=== PATIENT | female | born 1950 | race Hispanic/Latino ===

== ENCOUNTER 2019-01-15 11:54 | Outpatient (RCR) | payer MEDICARE ==
[~2019-01-15 11:54] MED LIST: ACETAMINOPHEN325 M1 PO; AMITIZA24 MCG PO; ASPIR 8181 MG PO; B-50 COMPLEX1 EACH PO; BISACODYL5 MG PO; CIPRO500 MG PO; CLINDAMYCIN HC150 MG PO; CLONIDINE HCL0.1 MG PO; COZAAR25 MG PO; DOC-Q-LACE100 MG PO; DOXYCYCLINE HY100 MG PO; FERROUS SULFAT325 MG PO; GABAPENTIN100 MG PO; GLUCOSAMINE1000 MG PO; LANTUS 3ML100 UNITS/ SC; LEVOTHYROX200 MCG/VI PO; LEVOTHYROXINE50 MCG PO; LYRICA75 MG PO; METOPROLOL SUCC25 MG PEG; NEXIUM40 MG PO; NIACIN500 M2 PO; NOVOLIN R100 UNIT/1; OMEGA-3 FISH1000 MG PO; PLAVIX75 MG PO; POTASSIUM GLUC500 GM PO; SENNA LAX8.6 MG PO; TYLENOL WITH C1 EACH PO; VITAMIN C500 MG PO; VITAMIN D1000 UNI1 PO; santyl TOP
== END 2019-01-17 ==
LOC: WCC 11:54
PROVIDERS: ATTEND Internal Medicine Infectious Disease
DX: E11.621 Type 2 diabetes mellitus with foot ulcer (principal); L97.411 Non-pressure chronic ulcer of right heel and midfoot limited to breakdown of skin; M77.32 Calcaneal spur, left foot; I10 Essential (primary) hypertension; E03.9 Hypothyroidism, unspecified; E78.00 Pure hypercholesterolemia, unspecified; M13.80 Other specified arthritis, unspecified site

== ENCOUNTER 2019-01-15 16:10 | Emergency (ER) | payer MEDICARE ==
[~2019-01-15] VITALS: Ht 170.2 cm; Wt 89.8 kg
--- OUTSIDE RECORDS SUMMARY | 2019-01-15 16:13 | XMS REPORT | Continuity of Care Document ---
Author Author IGIGI Address Unknown Phone Unavailable Care Team Providers Care Parking Manager Name Role Phone [employer] Unavailable Unavailable Problems Problem Status Onset Date Classification Date Reported Comments Source GANGRENE TO LEFT GREAT TOE Active 12/30/2016 [facility] RASH Active 11/09/2016 [facility] Discharge Diagnosis: Fall (from) incline, sequela 07/03/2015 07/06/2015 [facility] Discharge Diagnosis: Sprain of ligaments of cervical spine, initial encounter 07/02/2015 07/05/2015 [facility] Discharge Diagnosis: Sprain of ligaments of lumbar spine, initial encounter 07/02/2015 07/05/2015 [facility] Discharge Diagnosis: Fall on same level from slipping, tripping and stumbling with subsequent striking against furniture, initial encounter 07/02/2015 07/05/2015 [facility] Discharge Diagnosis: Concussion without loss of consciousness, initial encounter 07/02/2015 07/05/2015 [facility] FALL Active 07/01/2015 [facility] Discharge Diagnosis: Hyperglycemia 07/03/2014 07/06/2014 [facility] Discharge Diagnosis: Acute UTI 07/03/2014 07/06/2014 [facility] NEUROPOTHY Active 07/03/2014 [facility] Diabetes Resolved Problem 01/08/2017 [facility] Hypertension Resolved Problem 01/08/2017 [facility] Neuropathy Resolved Problem 01/08/2017 [facility] Sciatica Resolved Problem 01/08/2017 [facility] 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 [facility] 719.41/ 719.46 Active [facility] GANGRENE AND NECROSIS OF LUNG Active [facility] Medications Medication Details Route Status Patient Instructions Ordering Provider Order Date Source Acetaminophen 300 MG / Codeine Phosphate 30 MG Oral Tablet [Tylenol with Codeine #3] 1 tab, PO, Q6H, PRN Pain, # 25 tab, 0 Refill(s) Active 01/05/2017 [facility] clopidogrel 75 mg oral tablet 75 mg=1 tab, PO, Daily, # 30 tab, 0 Refill(s) Active 01/05/2017 [facility] Amoxicillin 875 MG / Clavulanate 125 MG Oral Tablet [Augmentin 875-mg] 1 tab, PO, Q12H, # 14 tab, 0 Refill(s) Active 01/05/2017 [facility] Amoxicillin 875 MG / Clavulanate 125 MG Oral Tablet [Augmentin 875-mg] 1 tab, Route: PO, Drug Form: TAB, Dosing Weight 91.818, kg, Q12H, Start date: 01/04/17 21:00:00 CDT, Duration: 30 day, Stop date: 02/03/17 9:00:00 CDTNotes: With food. (Same as: Augmentin 875) No Longer Active 01/05/2017 [facility] Calcium Chloride 0.0014 MEQ/ML / Potassium Chloride 0.004 MEQ/ML / Sodium Chloride 0.103 MEQ/ML / Sodium Lactate 0.028 MEQ/ML Injectable Solution 1,000 mL, Rate: 25 ml/hr, Infuse over: 40 hr, Route: IV, Dosing Weight 91.818 kg, Total Volume: 1,000, Start date: 01/03/17 14:33:00 CDT, Duration: 30 day, Stop date: 02/02/17 14:32:00 CDT Inactive 01/03/2017 [facility] Morphine 2 mg, Route: IVP, Q5Min, Dosing Weight 91.818, kg, PRN Pain Score 4-6, Start date: 01/03/17 12:01:00 CDT, Duration: 5 doses or times, Stop date: Limited # of times Inactive 01/03/2017 [facility] Fentanyl 25 microgram, Route: IVP, Q5Min, Dosing Weight 91.818, kg, PRN Pain Score 4-6, Priority: Routine, Start date: 01/03/17 12:01:00 CDT, Duration: 4 doses or times, Stop date: Limited # of times Inactive 01/03/2017 [facility] Labetalol 10 mg, Route: IVP, Q5Min, Dosing Weight 91.818, kg, PRN Elevated BP, Start date: 01/03/17 12:01:00 CDT, Duration: 5 doses or times, Stop date: Limited # of times Inactive 01/03/2017 [facility] Ondansetron 4 mg, Route: IVP, ONCE, Dosing Weight 91.818, kg, PRN Nausea & Vomiting, Start date: 01/03/17 12:01:00 CDT Inactive 01/03/2017 [facility] Flumazenil 0.2 mg, Route: IVP, PRN, Dosing Weight 91.818, kg, PRN Benzodiazepine Reversal, Initial dose, Start date: 01/03/17 12:01:00 CDT, Duration: 30 day, Stop date: 02/02/17 12:00:00 CDT Inactive 01/03/2017 [facility] Naloxone 0.4 mg, Route: IVP, Q2MIN, Dosing Weight 91.818, kg, PRN Narcotic Reversal, Start date: 01/03/17 12:01:00 CDT, Duration: 8 doses or times, Stop date: Limited # of times Inactive 01/03/2017 [facility] labetalol (ANES) Route: IV, Drug form: INJ, ONCE, Stop date: 01/03/17 10:48:00 CDT Inactive 01/03/2017 [facility] ondansetron (ANES) Route: IV, Drug form: INJ, ONCE, Stop date: 01/03/17 10:43:00 CDT Inactive 01/03/2017 [facility] fentaNYL (ANES) Route: IV, Drug form: INJ, ONCE, Stop date: 01/03/17 10:43:00 CDT Inactive 01/03/2017 [facility] midazolam (ANES) Route: IV, Drug form: SOLN, ONCE, Stop date: 01/03/17 10:33:00 CDT Inactive 01/03/2017 [facility] sodium chloride 0.9% 1000 ml INJ (ANES) Route: IV, Total Volume: 1,000, Start date: 01/03/17 9:55:00 CDT, Stop date: 01/03/17 10:55:00 CDT Inactive 01/03/2017 [facility] RN-Do not give Vanc till trough drawn01/02/17@17:30 RN-Do not give Vanc till trough drawn01/02/17@17:30 , Attn:N, Drug form: MISC, Route: MISC, ONCE, 01/02/17 17:00:00 CDT, Stop date: 01/02/17 17:00:00 CDT No Longer Active 01/02/2017 [facility] Plavix 75 mg, 1 tab, Route: PO, Drug form: TAB, Daily, Dosing Weight 91.818, kg, Start date: 01/02/17 9:00:00 CDT, Duration: 30 day, Stop date: 01/31/17 9:00:00 CDTNotes: (Same As: Plavix) No Longer Active 01/02/2017 [facility] Hydromorphone 0.5 mg, 0.5 mL, Route: IV, Drug form: INJ, Q3H, Dosing Weight 91.818, kg, PRN Pain Score 7-10, Start date: 01/01/17 15:30:00 CDT, Duration: 30 day, Stop date: 01/31/17 15:29:00 CDT No Longer Active 01/01/2017 [facility] sodium chloride 0.9% 1000 ml INJ 1,000 mL 1,000 mL, Rate: 100 ml/hr, Infuse over: 10 hr, Route: IV, Dosing Weight 91.818 kg, Total Volume: 1,000, Start date: 01/01/17 15:30:00 CDT, Duration: 30 day, Stop date: 01/31/17 15:29:00 CDT No Longer Active 01/01/2017 [facility] Acetaminophen 325 MG / Hydrocodone Bitartrate 5 MG Oral Tablet 1 tab, Route: PO, Drug Form: TAB, Dosing Weight 91.818, kg, Q4H, PRN Pain Score 4-6, Start date: 01/01/17 15:30:00 CDT, Duration: 30 day, Stop date: 01/31/17 15:29:00 CDTNotes: (Same as: [place] 325/5) Do not exceed 4gm/day of acetaminophen. No Longer Active 01/01/2017 [facility] Acetaminophen 325 MG / Hydrocodone Bitartrate 10 MG Oral Tablet 2 tab, Route: PO, Drug Form: TAB, Dosing Weight 91.818, kg, Q4H, PRN Pain Score 7-10, Start date: 01/01/17 15:30:00 CDT, Duration: 30 day, Stop date: 01/31/17 15:29:00 CDTNotes: Do not exceed 4gm/day of acetaminophen. (Same as: [place] 325/10) No Longer Active 01/01/2017 [facility] Calcium Chloride 0.0014 MEQ/ML / Potassium Chloride 0.004 MEQ/ML / Sodium Chloride 0.103 MEQ/ML / Sodium Lactate 0.028 MEQ/ML Injectable Solution 1,000 mL, Rate: 100 ml/hr, Infuse over: 10 hr, Route: IV, Dosing Weight 91.818 kg, Total Volume: 1,000, Start date: 01/01/17 15:30:00 CDT, Duration: 30 day, Stop date: 01/31/17 15:29:00 CDT No Longer Active 01/01/2017 [facility] heparin (ANES) Route: IV, Drug form: INJ, ONCE, Stop date: 01/01/17 15:12:00 CDT Inactive 01/01/2017 [facility] hydromorphone (ANES) Route: IV, Drug form: INJ, ONCE, Stop date: 01/01/17 14:57:00 CDT Inactive 01/01/2017 [facility] labetalol (ANES) Route: IV, Drug form: INJ, ONCE, Stop date: 01/01/17 14:51:00 CDT Inactive 01/01/2017 [facility] ondansetron (ANES) Route: IV, Drug form: INJ, ONCE, Stop date: 01/01/17 14:46:00 CDT Inactive 01/01/2017 [facility] ceFAZolin (ANES) Route: IV, Drug form: INJ, ONCE, Stop date: 01/01/17 14:46:00 CDT Inactive 01/01/2017 [facility] midazolam (ANES) Route: IV, Drug form: SOLN, ONCE, Stop date: 01/01/17 14:46:00 CDT Inactive 01/01/2017 [facility] fentaNYL (ANES) Route: IV, Drug form: INJ, ONCE, Stop date: 01/01/17 14:46:00 CDT Inactive 01/01/2017 [facility] LR 1000 mL INJ (ANES) Route: IV, Total Volume: 1,000, Start date: 01/01/17 14:09:00 CDT, Stop date: 01/01/17 15:09:00 CDT Inactive 01/01/2017 [facility] Lactated Ringers Injection IV 1000 mL 1,000 mL, Rate: 25 ml/hr, Infuse over: 40 hr, Route: IV, Dosing Weight 91.818 kg, Total Volume: 1,000, Start date: 01/01/17 13:24:00 CDT, Duration: 30 day, Stop date: 01/31/17 13:23:00 CDT Inactive 01/01/2017 [facility] vancomycin 1.25 gm, 250 mL, Route: IVPB, Drug form: INJ, [id number], Start date: 01/01/17 6:00:00 CDT, Duration: 30 day, Stop date: 01/30/17 18:00:00 CDT, ABX Indication: Bone/Joint InfectionNotes: TIME CRITICAL MEDICATION Same as: Vancocin-NS (premixed) Infusion rate 2001 mg: infuse over 2.5 hours No Longer Active 01/01/2017 [facility] sodium chloride 0.9% 1000 ml INJ 1,000 mL 1,000 mL, Rate: 100 ml/hr, Infuse over: 10 hr, Route: IV, Dosing Weight 91.818 kg, Total Volume: 1,000, Start date: 12/31/16 17:52:00 CDT, Duration: 30 day, Stop date: 01/30/17 17:51:00 CDT No Longer Active 12/31/2016 [facility] RN-Do not give vanc till trough drawn12/31/16@17:30 RN-Do not give vanc till trough drawn12/31/16@17:30 , Attn:RN, Drug form: MISC, Route: MISC, ONCE, 12/31/16 17:00:00 CDT, Stop date: 12/31/16 17:00:00 CDT Inactive 12/31/2016 [facility] pneumococcal 13-valent vaccine 0.5 mL, Route: IM, Drug Form: INJ, Daily, Start date: 12/31/16 12:00:00 CDT, Stop date: 12/31/16 14:00:00 CDTNotes: Shake well prior to use (Same as: Prevnar 13) Inactive 12/31/2016 [facility] pneumococcal 13-valent vaccine 0.5 mL, Route: IM, Drug Form: INJ, ONCE, Start date: 12/31/16 10:09:00 CDT, Stop date: 12/31/16 10:09:00 CDTNotes: Shake well prior to use (Same as: Prevnar 13) Inactive 12/31/2016 [facility] cholecalciferol 5,000 IntlUnit, 1 cap, Route: PO, Drug form: CAP, Daily, Dosing Weight 91.818, kg, Start date: 12/31/16 9:00:00 CDT, Duration: 30 day, Stop date: 01/29/17 9:00:00 CDTNotes: (Same as: Vitamin D3) No Longer Active 12/31/2016 [facility] pregabalin 150 mg, 3 cap, Route: PO, Drug form: CAP, BID, Dosing Weight 91.818, kg, Start date: 12/31/16 9:00:00 CDT, Stop date: 01/29/17 17:00:00 CDTNotes: Same as Lyrica No Longer Active 12/31/2016 [facility] Amitiza 24 microgram, Route: PO, Drug form: CAP, BID, Dosing Weight 91.818, kg, Start date: 12/31/16 9:00:00 CDT, Duration: 30 day, Stop date: 01/29/17 17:00:00 CDT No Longer Active 12/31/2016 [facility] Thyroxine 200 microgram, 1 tab, Route: PO, Drug form: TAB, Q630AM, Dosing Weight 91.818, kg, Start date: 12/31/16 6:30:00 CDT, Duration: 30 day, Stop date: 01/29/17 6:30:00 CDTNotes: Take 1 hour before or 2 hours after meal; Enteral feeds may interefere with the absorption of this medication. (Same as: Levothroid) No Longer Active 12/31/2016 [facility] Please bring pt's own med amitiza (lubiprostone) to pharm Please bring pt's own med amitiza (lubiprostone) to pharm, reminder, Drug form: MISC, Route: MISC, QSHIFT, 12/31/16 0:00:00 CDT, Duration: 30 day, Stop date: 01/29/17 16:00:00 CDT No Longer Active 12/31/2016 [facility] aspirin 81 mg tablet, enteric coated 81 mg, 1 tab, Route: PO, Drug form: ECTAB, Daily, Dosing Weight 91.818, kg, Start date: 12/30/16 19:00:00 CDT, Duration: 30 day, Stop date: 01/29/17 9:00:00 CDTNotes: Do not crush or chew. (Same As: Ecotrin) No Longer Active 12/31/2016 [facility] heparin 5,000 unit, 1 mL, Route: SUB-Q, Drug form: INJ, Q8Hnow, Dosing Weight 91.818, kg, Start date: 12/30/16 17:00:00 CDT, Duration: 30 day, Stop date: 01/29/17 9:00:00 CDTNotes: porcine heparin No Longer Active 12/30/2016 [facility] Docusate 100 mg, 1 cap, Route: PO, Drug form: CAP, BID, Dosing Weight 91.818, kg, Start date: 12/30/16 9:00:00 CDT, Duration: 30 day, Stop date: 01/28/17 17:00:00 CDTNotes: (Same as: Colace) (Do Not Crush) No Longer Active 12/30/2016 [facility] Streptococcus pneumoniae serotype 1 capsular antigen diphtheria [id number] protein conjugate vaccine / Streptococcus pneumoniae serotype 14 capsular antigen diphtheria [id number] protein conjugate vaccine / Streptococcus pneumoniae serotype 18C capsular antigen d 0.5 mL, Route: IM, Drug Form: INJ, Daily, Start date: 12/30/16 9:00:00 CDT, Duration: 1 doses or times, Stop date: 12/30/16 9:00:00 CDTNotes: Shake well prior to use (Same as: Prevnar 13) No Longer Active 12/30/2016 [facility] Zosyn 3.375 gm, Route: IVPB, [id number], Dosing Weight 91.818, kg, CrCl >=20 ml/min infuse over 4 hours, Start date: 12/30/16 6:00:00 CDT, Duration: 7 day, Stop date: 01/05/17 22:00:00 CDT, ABX Indication: Skin/Soft Tissue InfectionNotes: (Same as: Zosyn) Dosing based on Piperacillin component MEDICATION WASTE Product Size: 3375 mg Product Wasted: ___ mg No Longer Active 12/30/2016 [facility] Vancomycin 1,000 mg, Route: IVPB, [id number], Dosing Weight 91.818, kg, Start date: 12/30/16 6:00:00 CDT, Duration: 7 day, Stop date: 01/05/17 18:00:00 CDT, ABX Indication: Skin/Soft Tissue InfectionNotes: TIME CR ITICAL MEDICATION (Same As: Vancocin) Infusion rate 2001 mg: infuse over 2.5 hours MEDICATION WASTE Product Size: 1000 mg Product Wasted: ___ mg No Longer Active 12/30/2016 [facility] Insulin, Aspart, Human 3 unit, 0.03 mL, Route: SUB-Q, Drug form: SOLN, Bedtime, Dosing Weight 91.818, kg, PRN Blood Glucose Results, Start date: 12/30/16 5:43:00 CDT, Duration: 30 day, Stop date: 01/29/17 5:42:00 CDTNotes: Roll in palms of hands gently; Do not shake vigorously. (Same as: NovoLOG) "single patient use only" WASTE: F/P - Black; E - Municipal Trash Bin Stable for 28 days at room temperature. Expires in days from Date No Longer Active 12/30/2016 [facility] Dextrose 50% Syringe 25 gm, 50 mL, Route: IVP, Drug Form: INJ, Dosing Weight 91.818, kg, PRN, PRN Blood Glucose Results, Start date: 12/30/16 5:43:00 CDT, Duration: 30 day, Stop date: 01/29/17 5:42:00 CDT No Longer Active 12/30/2016 [facility] Glucagon 1 mg, Route: IM, Drug form: PDR/INJ, PRN, Dosing Weight 91.818, kg, PRN Blood Glucose Results, Start date: 12/30/16 5:43:00 CDT, Duration: 30 day, Stop date: 01/29/17 5:42:00 CDT No Longer Active 12/30/2016 [facility] Saline Flush 0.9% 10 ml, Route: IVP, Drug Form: INJ, Dosing Weight 91.818, kg, PRN, PRN Line Flush, Start date: 12/30/16 5:41:00 CDT, Duration: 30 day, Stop date: 01/29/17 5:40:00 CDTNotes: (Same as: BD Posiflush) No Longer Active 12/30/2016 [facility] Sodium Chloride 0.154 MEQ/ML Injectable Solution 1,000 mL, Rate: 75 ml/hr, Infuse over: 13.3 hr, Route: IV, Dosing Weight 91.818 kg, Total Volume: 1,000, Start date: 12/30/16 5:41:00 CDT, Duration: 30 day, Stop date: 01/29/17 5:40:00 CDT No Longer Active 12/30/2016 [facility] Morphine 2 mg, 1 mL, Route: IVP, Drug form: INJ, Q4H, Dosing Weight 91.818, kg, PRN Pain Score 7-10, Start date: 12/30/16 5:41:00 CDT, Duration: 30 day, Stop date: 01/29/17 5:40:00 CDTNotes: (Same as:MORPhine Sulfate) No Longer Active 12/30/2016 [facility] Acetaminophen 325 MG / Hydrocodone Bitartrate 5 MG Oral Tablet 2 tab, Route: PO, Drug Form: TAB, Dosing Weight 91.818, kg, Q4H, PRN Pain Score 7-10, Start date: 12/30/16 5:41:00 CDT, Duration: 30 day, Stop date: 01/29/17 5:40:00 CDTNotes: (Same as: [place] 325/5) Do not exceed 4gm/day of acetaminophen. No Longer Active 12/30/2016 [facility] Ondansetron 4 mg, 2 mL, Route: IVP, Drug form: INJ, Q6H, Dosing Weight 91.818, kg, PRN Nausea & Vomiting, Start date: 12/30/16 5:41:00 CDT, Duration: 30 day, Stop date: 01/29/17 5:40:00 CDTNotes: (Same as: Zofran) MEDICATION WASTE Product Size: 4 mg Product Wasted: ___ mg No Longer Active 12/30/2016 [facility] Morphine 2 mg, 1 mL, Route: IVP, Drug form: INJ, Q4H, Dosing Weight 91.818, kg, PRN Pain Score 7-10, Start date: 12/30/16 5:04:00 CDT, Duration: 30 day, Stop date: 01/29/17 5:03:00 CDTNotes: (Same as:MORPhine Sulfate) Inactive 12/30/2016 [facility] sodium chloride 0.9% 1000 ml INJ 1,000 mL 1,000 mL, Rate: 125 ml/hr, Infuse over: 8 hr, Route: IV, Dosing Weight 91.818 kg, Total Volume: 1,000, Start date: 12/30/16 5:03:00 CDT, Duration: 30 day, Stop date: 01/29/17 5:02:00 CDT Inactive 12/30/2016 [facility] Docusate Sodium 100 MG Oral Capsule [Colace] 100 mg=1 cap, PO, Daily, 0 Refill(s) Active 12/30/2016 [facility] Clindamycin 150 mg, PO, ABXQ8H, 0 Refill(s) No Longer Active 12/30/2016 [facility] Esomeprazole 40 MG Enteric Coated Capsule [Nexium] 40 mg=1 cap, PO, Daily, 0 Refill(s) Inactive 12/30/2016 [facility] Glucosamine 500 mg, PO, Daily, 0 Refill(s) Active 12/30/2016 [facility] cholecalciferol 5,000 IntlUnit, PO, Daily, 0 Refill(s) Active 12/30/2016 [facility] Niacin 500 mg, PO, Daily, 0 Refill(s) Active 12/30/2016 [facility] Thyroxine 200 microgram, PO, Daily, 0 Refill(s) Active 12/30/2016 [facility] potassium gluconate 595 mg oral tablet 595 mg po oral daily, 0 Refill(s) Active 12/30/2016 [facility] lubiprostone 0.024 MG Oral Capsule [Amitiza] 24 microgram=1 cap, PO, BID, 0 Refill(s) Active 12/30/2016 [facility] Insulin Glargine 100 UNT/ML Injectable Solution 0.3 unit/kg, SUB-Q, BID, 50 units sq bid, 0 Refill(s) Active 12/30/2016 [facility] aspirin 81 mg tablet, enteric coated 81 mg=1 tab, PO, Daily, # 90 tab, 3 Refill(s) Active 12/30/2016 [facility] pregabalin 75 mg oral capsule 75 mg=1 cap, PO, BID, 0 Refill(s) Active 12/30/2016 [facility] losartan 50 mg oral tablet 50 mg=1 tab, PO, Daily, 0 Refill(s) Active 12/30/2016 [facility] Vitamin B Complex oral tablet 1 tab, PO, Daily, 0 Refill(s) Active 12/30/2016 [facility] tramadol hydrochloride 50 MG Oral Tablet [Ultram] 50 mg=1 tab, PO, Q4H, PRN pain, X 5 day, # 30 tab, 0 Refill(s) Active 07/03/2015 [facility] Ondansetron 4 MG Disintegrating Tablet [Zofran] 4 mg=1 tab, PO, BID, PRN Nausea and Vomiting, Dissolve tab under tongue, X 3 day, # 10 tab, 0 Refill(s) Active 07/03/2015 [facility] Zofran 4 mg, Route: IVP, Drug form: INJ, ONCE, Dosing Weight 98.182, kg, Priority: STAT, Start date: 07/03/15 8:51:00, Stop date: 07/03/15 8:51:00 Inactive 07/03/2015 [facility] tramadol hydrochloride 50 MG Oral Tablet [Ultram] 1 tab, Route: PO, Drug form: TAB, ONCE, Dosing Weight 98.182, kg, Priority: STAT, Start date: 07/03/15 8:50:00, Stop date: 07/03/15 8:50:00 Inactive 07/03/2015 [facility] Morphine 4 mg, 2 mL, Route: IVP, Drug form: INJ, ONCE, Dosing Weight 98.182, kg, Priority: STAT, Start date: 07/03/15 8:11:00, Stop date: 07/03/15 8:11:00Notes: (Same as:MORPhine Sulfate) Inactive 07/03/2015 [facility] Acetaminophen 325 MG Oral Tablet [Tylenol] 650 mg=2 tab, PO, Q4H, PRN Pain, X 3 day, # 36 tab, 0 Refill(s) Active 07/02/2015 [facility] Acetaminophen 650 mg, Route: PO, Drug form: TAB, ONCE, Dosing Weight 100, kg, Priority: STAT, Start date: 07/02/15 6:06:00, Stop date: 07/02/15 6:06:00 Inactive 07/02/2015 [facility] Zofran ODT 4 mg, Route: PO, Drug form: TABDIS, ONCE, Dosing Weight 100, kg, Priority: STAT, Start date: 07/02/15 6:06:00, Stop date: 07/02/15 6:06:00 Inactive 07/02/2015 [facility] NPH Insulin, Human 70 UNT/ML / Regular Insulin, Human 30 UNT/ML Injectable Suspension [Novolin 70/30] See Special Instructions, SUB-Q, BID-Before Meals, Take as previously prescribed, # 10 vial, 0 Refill(s)Special Instructions: Take as previously prescribed Active 07/03/2014 [facility] Nitrofurantoin 100 MG Oral Capsule [Macrobid] 100 mg=1 cap, PO, BID, # 14 cap, 0 Refill(s) Active 07/03/2014 [facility] Allergies, Adverse Reactions, Alerts Substance Category Reaction Severity Reaction type Status Date Reported Comments Source Actos Assertion Drug allergy Active [facility] Immunizations Immunization Date Given Site Status Last Updated Comments Source pneumococcal 13-valent vaccine 12/31/2016 Right deltoid completed [facility] Results Order Name Results Value Reference Range Date Interpretation Comments Source HEMATOLOGY Hgb 8.1 12.0 - 16.0 01/05/2017 [facility] HEMATOLOGY RBC 2.62 4.20 - 5.40 01/05/2017 [facility] HEMATOLOGY WBC 8.9 3.7 - 10.4 01/05/2017 [facility] HEMATOLOGY RDW 13.1 11.5 - 14.5 01/05/2017 [facility] HEMATOLOGY MCHC 34.1 32.0 - 36.0 01/05/2017 [facility] HEMATOLOGY Hct 23.8 36.0 - 48.0 01/05/2017 [facility] HEMATOLOGY MCH 30.9 27.0 - 31.0 01/05/2017 [facility] HEMATOLOGY MCV 90.6 80.0 - 98.0 01/05/2017 [facility] HEMATOLOGY Platelet 290 133 - 450 01/05/2017 [facility] MPV 7.6 7.4 - 10.4 01/05/2017 [facility] CHEM PANEL eGFR 92 01/04/2017 Result Comment: The eGFR is calculated using the CKD-EPI formula. In most young, healthy individuals the eGFR will be >90 mL/min/1.73m2. The eGFR declines with age. An eGFR of 60-89 may be normal in some populations, particularly the elderly, for whom the CKD-EPI formula has not been extensively validated. Use of the eGFR is not recommended in the following populations:

Individuals with unstable creatinine concentrations, including patients and those with serious co-morbid conditions.

Patients with extremes in muscle mass or diet.

The data above are obtained from the National Kidney Disease Education Program (NKDEP) which additionally recommends that when the eGFR is used in patients with extremes of body mass index for purposes of drug dosing, the eGFR should be multiplied by the estimated BMI. [facility] CHEM PANEL Chloride Lvl 102 95 - 109 01/04/2017 [facility] CHEM PANEL CO2 27 24 - 32 01/04/2017 [facility] CHEM PANEL Calcium Lvl 8.0 8.5 - 10.5 01/04/2017 [facility] CHEM PANEL Sodium Lvl 135 135 - 145 01/04/2017 [facility] CHEM PANEL Potassium Lvl 3.8 3.5 - 5.1 01/04/2017 [facility] CHEM PANEL Glucose Lvl 215 70 - 99 01/04/2017 [facility] CHEM PANEL BUN 7 7 - 22 01/04/2017 [facility] CHEM PANEL Creatinine Lvl 0.67 0.50 - 1.40 01/04/2017 [facility] CHEM PANEL AGAP 9.8 10.0 - 20.0 01/04/2017 [facility] MPV 7.0 7.4 - 10.4 01/04/2017 [facility] Platelet 256 133 - 450 01/04/2017 [facility] HEMATOLOGY RDW 13.3 11.5 - 14.5 01/04/2017 [facility] MCHC 33.8 32.0 - 36.0 01/04/2017 [facility] MCH 30.2 27.0 - 31.0 01/04/2017 [facility] HEMATOLOGY MCV 89.5 80.0 - 98.0 01/04/2017 [facility] Hct 22.2 36.0 - 48.0 01/04/2017 [facility] WBC 9.2 3.7 - 10.4 01/04/2017 [facility] Hgb 7.5 12.0 - 16.0 01/04/2017 [facility] HEMATOLOGY RBC 2.48 4.20 - 5.40 01/04/2017 [facility] TOXICOLOGY Vanco Tr TND 0 01/02/2017 [facility] TOXICOLOGY Vanco Tr 19.3 01/02/2017 [facility] CHEM PANEL eGFR 92 01/02/2017 Result Comment: The eGFR is calculated using the CKD-EPI formula. In most young, healthy individuals the eGFR will be >90 mL/min/1.73m2. The eGFR declines with age. An eGFR of 60-89 may be normal in some populations, particularly the elderly, for whom the CKD-EPI formula has not been extensively validated. Use of the eGFR is not recommended in the following populations:

Individuals with unstable creatinine concentrations, including patients and those with serious co-morbid conditions.

Patients with extremes in muscle mass or diet.

The data above are obtained from the National Kidney Disease Education Program (NKDEP) which additionally recommends that when the eGFR is used in patients with extremes of body mass index for purposes of drug dosing, the eGFR should be multiplied by the estimated BMI. [facility] CHEM PANEL BUN 7 7 - 22 01/02/2017 [facility] CHEM PANEL Creatinine Lvl 0.67 0.50 - 1.40 01/02/2017 [facility] CHEM PANEL Sodium Lvl 134 135 - 145 01/02/2017 [facility] CHEM PANEL Glucose Lvl 134 70 - 99 01/02/2017 [facility] CHEM PANEL AGAP 11.9 10.0 - 20.0 01/02/2017 [facility] CHEM PANEL CO2 26 24 - 32 01/02/2017 [facility] CHEM PANEL Calcium Lvl 8.0 8.5 - 10.5 01/02/2017 [facility] CHEM PANEL Potassium Lvl 3.9 3.5 - 5.1 01/02/2017 [facility] CHEM PANEL Chloride Lvl 100 95 - 109 01/02/2017 [facility] HEMATOLOGY Eosinophils # 0.1 0.0 - 0.5 01/02/2017 [facility] HEMATOLOGY Basophils # 0.2 0.0 - 0.2 01/02/2017 [facility] HEMATOLOGY Basophils 1.3 0.0 - 1.0 01/02/2017 [facility] HEMATOLOGY Lymphocytes # 1.9 1.0 - 5.5 01/02/2017 [facility] Lymphocytes 16.3 20.0 - 40.0 01/02/2017 [facility] Segs-Bands # 8.8 1.5 - 8.1 01/02/2017 [facility] Monocytes # 0.9 0.0 - 0.8 01/02/2017 [facility] HEMATOLOGY Segs 74.3 45.0 - 75.0 01/02/2017 [facility] HEMATOLOGY Eosinophils 0.6 0.0 - 4.0 01/02/2017 [facility] Monocytes 7.5 2.0 - 12.0 01/02/2017 [facility] RDW 12.9 11.5 - 14.5 01/02/2017 [facility] MCH 30.4 27.0 - 31.0 01/02/2017 [facility] MCHC 33.7 32.0 - 36.0 01/02/2017 [facility] MCV 90.3 80.0 - 98.0 01/02/2017 [facility] Hgb 8.3 12.0 - 16.0 01/02/2017 [facility] Hct 24.6 36.0 - 48.0 01/02/2017 [facility] RBC 2.73 4.20 - 5.40 01/02/2017 [facility] WBC 11.9 3.7 - 10.4 01/02/2017 [facility] MPV 7.4 7.4 - 10.4 01/02/2017 [facility] Platelet 266 133 - 450 01/02/2017 [facility] ELECTROLYTES AGAP 11.0 10.0 - 20.0 01/01/2017 [facility] ELECTROLYTES eGFR 93 01/01/2017 Result Comment: The eGFR is calculated using the CKD-EPI formula. In most young, healthy individuals the eGFR will be >90 mL/min/1.73m2. The eGFR declines with age. An eGFR of 60-89 may be normal in some populations, particularly the elderly, for whom the CKD-EPI formula has not been extensively validated. Use of the eGFR is not recommended in the following populations:

Individuals with unstable creatinine concentrations, including patients and those with serious co-morbid conditions.

Patients with extremes in muscle mass or diet.

The data above are obtained from the National Kidney Disease Education Program (NKDEP) which additionally recommends that when the eGFR is used in patients with extremes of body mass index for purposes of drug dosing, the eGFR should be multiplied by the estimated BMI. [facility] ELECTROLYTES Chloride Lvl 101 95 - 109 01/01/2017 [facility] ELECTROLYTES Sodium Lvl 135 135 - 145 01/01/2017 [facility] ELECTROLYTES Potassium Lvl 4.0 3.5 - 5.1 01/01/2017 [facility] ELECTROLYTES Calcium Lvl 8.8 8.5 - 10.5 01/01/2017 [facility] ELECTROLYTES CO2 27 24 - 32 01/01/2017 [facility] ELECTROLYTES Creatinine Lvl 0.64 0.50 - 1.40 01/01/2017 [facility] ELECTROLYTES BUN 6 7 - 22 01/01/2017 [facility] ELECTROLYTES Glucose Lvl 82 70 - 99 01/01/2017 [facility] BLOOD BANK RESULTS Antibody Scrn Negative (12/31/16 6:51 PM) 12/31/2016 [facility] BLOOD BANK RESULTS ABO/Rh O POS 12/31/2016 [facility] HEMATOLOGY PTT 45.9 22.9 - 35.8 12/31/2016 [facility] HEMATOLOGY INR 1.14 0.85 - 1.17 12/31/2016 [facility] HEMATOLOGY PT 14.8 12.0 - 14.7 12/31/2016 [facility] HEMATOLOGY Lymphocytes 18.8 20.0 - 40.0 12/31/2016 [facility] HEMATOLOGY Eosinophils 1.5 0.0 - 4.0 12/31/2016 [facility] HEMATOLOGY Segs 71.0 45.0 - 75.0 12/31/2016 [facility] HEMATOLOGY Monocytes 8.0 2.0 - 12.0 12/31/2016 [facility] HEMATOLOGY Basophils 0.7 0.0 - 1.0 12/31/2016 [facility] HEMATOLOGY Segs-Bands # 8.0 1.5 - 8.1 12/31/2016 [facility] HEMATOLOGY Monocytes # 0.9 0.0 - 0.8 12/31/2016 [facility] HEMATOLOGY Lymphocytes # 2.1 1.0 - 5.5 12/31/2016 [facility] HEMATOLOGY Eosinophils # 0.2 0.0 - 0.5 12/31/2016 [facility] HEMATOLOGY Basophils # 0.1 0.0 - 0.2 12/31/2016 [facility] TOXICOLOGY Vanco Tr 12.5 12/31/2016 [facility] TOXICOLOGY Vanco Tr TND 0 12/31/2016 [facility] CHEM PANEL Magnesium Lvl 1.9 1.8 - 2.4 12/31/2016 [facility] CHEM PANEL B/C Ratio 17 6 - 25 12/31/2016 [facility] CHEM PANEL A/G Ratio 0.4 0.7 - 1.6 12/31/2016 [facility] CHEM PANEL Globulin 4.6 2.7 - 4.2 12/31/2016 [facility] CHEM PANEL ALT 23 0 - 65 12/31/2016 [facility] CHEM PANEL Total Protein 6.6 6.4 - 8.4 12/31/2016 [facility] CHEM PANEL Albumin Lvl 2.0 3.5 - 5.0 12/31/2016 [facility] CHEM PANEL Alk Phos 290 39 - 136 12/31/2016 [facility] CHEM PANEL AST 23 0 - 37 12/31/2016 [facility] CHEM PANEL Bili Total 0.6 0.2 - 1.3 12/31/2016 [facility] CHEM PANEL Phosphorus 3.4 2.5 - 4.5 12/31/2016 [facility] HEMATOLOGY Monocytes 8.5 2.0 - 12.0 12/31/2016 [facility] HEMATOLOGY Lymphocytes 18.0 20.0 - 40.0 12/31/2016 [facility] HEMATOLOGY Segs 70.6 45.0 - 75.0 12/31/2016 [facility] HEMATOLOGY Monocytes # 0.8 0.0 - 0.8 12/31/2016 [facility] HEMATOLOGY Segs-Bands # 6.9 1.5 - 8.1 12/31/2016 [facility] HEMATOLOGY Basophils 0.9 0.0 - 1.0 12/31/2016 [facility] HEMATOLOGY Lymphocytes # 1.7 1.0 - 5.5 12/31/2016 [facility] HEMATOLOGY Eosinophils 2.0 0.0 - 4.0 12/31/2016 [facility] HEMATOLOGY Basophils # 0.1 0.0 - 0.2 12/31/2016 [facility] HEMATOLOGY Eosinophils # 0.2 0.0 - 0.5 12/31/2016 [facility] HEMATOLOGY INR 1.22 0.85 - 1.17 12/31/2016 [facility] HEMATOLOGY PTT 44.6 22.9 - 35.8 12/31/2016 [facility] HEMATOLOGY PT 15.7 12.0 - 14.7 12/31/2016 [facility] SPECIAL CHEMISTRY Hgb A1C 9.1 <=5.6 % 12/31/2016 [facility] CHEM PANEL Lactic Acid Lvl 1.0 0.5 - 2.2 12/30/2016 [facility] CHEM PANEL eGFR 63 07/03/2015 Result Comment: The eGFR is calculated using the CKD-EPI formula. In most young, healthy individuals the eGFR will be >90 mL/min/1.73m2. The eGFR declines with age. An eGFR of 60-89 may be normal in some populations, particularly the elderly, for whom the CKD-EPI formula has not been extensively validated. Use of the eGFR is not recommended in the following populations:

Individuals with unstable creatinine concentrations, including patients and those with serious co-morbid conditions.

Patients with extremes in muscle mass or diet.

The data above are obtained from the National Kidney Disease Education Program (NKDEP) which additionally recommends that when the eGFR is used in patients with extremes of body mass index for purposes of drug dosing, the eGFR should be multiplied by the estimated BMI. [facility] CHEM PANEL Alk Phos 102 39 - 136 07/03/2015 [facility] CHEM PANEL Bili Total 0.7 0.2 - 1.3 07/03/2015 [facility] CHEM PANEL AST 18 0 - 37 07/03/2015 [facility] CHEM PANEL Albumin Lvl 3.4 3.5 - 5.0 07/03/2015 [facility] CHEM PANEL ALT 34 0 - 65 07/03/2015 [facility] CHEM PANEL Sodium Lvl 126 135 - 145 07/03/2015 [facility] CHEM PANEL Creatinine Lvl 0.95 0.50 - 1.40 07/03/2015 [facility] CHEM PANEL BUN 13 7 - 22 07/03/2015 [facility] CHEM PANEL Glucose Lvl 315 70 - 99 07/03/2015 [facility] CHEM PANEL Total Protein 7.4 6.4 - 8.4 07/03/2015 [facility] CHEM PANEL Chloride Lvl 92 95 - 109 07/03/2015 [facility] CHEM PANEL CO2 26 24 - 32 07/03/2015 [facility] CHEM PANEL Calcium Lvl 8.7 8.5 - 10.5 07/03/2015 [facility] CHEM PANEL Potassium Lvl 4.1 3.5 - 5.1 07/03/2015 [facility] CHEM PANEL B/C Ratio 14 6 - 25 07/03/2015 [facility] CHEM PANEL Globulin 4.0 2.0 - 4.0 07/03/2015 [facility] CHEM PANEL A/G Ratio 0.8 0.7 - 1.6 07/03/2015 [facility] CHEM PANEL AGAP 12.1 10.0 - 20.0 07/03/2015 [facility] HEMATOLOGY MPV 9.3 7.4 - 10.4 07/03/2015 [facility] HEMATOLOGY Platelet 191 133 - 450 07/03/2015 [facility] HEMATOLOGY RDW 12.6 11.5 - 14.5 07/03/2015 [facility] HEMATOLOGY MCHC 33.9 32.0 - 36.0 07/03/2015 [facility] MCH 32.1 27.0 - 31.0 07/03/2015 [facility] HEMATOLOGY RBC 4.20 4.20 - 5.40 07/03/2015 [facility] HEMATOLOGY MCV 94.5 80.0 - 98.0 07/03/2015 [facility] HEMATOLOGY Hct 39.6 36.0 - 48.0 07/03/2015 [facility] HEMATOLOGY Hgb 13.5 12.0 - 16.0 07/03/2015 [facility] HEMATOLOGY WBC 8.5 3.7 - 10.4 07/03/2015 [facility] HEMATOLOGY Monocytes 4.9 2.0 - 12.0 07/03/2015 [facility] HEMATOLOGY Segs 72.4 45.0 - 75.0 07/03/2015 [facility] HEMATOLOGY Lymphocytes 20.2 20.0 - 40.0 07/03/2015 [facility] HEMATOLOGY Monocytes # 0.4 0.0 - 0.8 07/03/2015 [facility] HEMATOLOGY Basophils # 0.1 0.0 - 0.2 07/03/2015 [facility] HEMATOLOGY Eosinophils # 0.1 0.0 - 0.5 07/03/2015 [facility] HEMATOLOGY Lymphocytes # 1.7 1.0 - 5.5 07/03/2015 [facility] HEMATOLOGY Segs-Bands # 6.2 1.5 - 8.1 07/03/2015 [facility] HEMATOLOGY Basophils 1.1 0.0 - 1.0 07/03/2015 [facility] HEMATOLOGY Eosinophils 1.4 0.0 - 4.0 07/03/2015 [facility] URINE AND STOOL UA Color Ltyellow 07/03/2015 [facility] URINE AND STOOL UA Urobilinogen <=1.0 mg/dL 0.1 - 1.0 07/03/2015 [facility] URINE AND STOOL UA Turbidity Clear (07/03/15 8:31 AM) Clear 07/03/2015 [facility] URINE AND STOOL UA Glucose 500 mg/dL Negative mg/dL 07/03/2015 [facility] URINE AND STOOL UA Ketones Negative mg/dL Negative mg/dL 07/03/2015 [facility] URINE AND STOOL UA Spec Grav 1.013 <=1.030 07/03/2015 [facility] URINE AND STOOL UA pH 6.0 5.0 - 8.0 07/03/2015 [facility] URINE AND STOOL UA Protein Negative mg/dL Negative mg/dL 07/03/2015 [facility] URINE AND STOOL UA Leuk Est Negative (07/03/15 8:31 AM) Negative 07/03/2015 [facility] URINE AND STOOL UA Bili Negative *NA* (07/03/15 8:31 AM) Negative 07/03/2015 [facility] URINE AND STOOL UA Blood Negative (07/03/15 8:31 AM) Negative 07/03/2015 [facility] URINE AND STOOL UA Nitrite Negative (07/03/15 8:31 AM) Negative 07/03/2015 [facility] URINE AND STOOL UA Sq Epi Occasional /LPF Few /LPF 07/03/2015 [facility] URINE AND STOOL UA WBC 1 0 - 5 07/03/2015 [facility] URINE AND STOOL UA RBC 1 0 - 2 07/03/2015 [facility] URINE AND STOOL UA RBC 4 0 - 2 07/03/2014 [facility] URINE AND STOOL UA Urobilinogen 2.0 0.1 - 1.0 07/03/2014 [facility] URINE AND STOOL UA Nitrite Negative (07/03/14 2:59 PM) Negative 07/03/2014 [facility] URINE AND STOOL UA WBC 7 0 - 5 07/03/2014 [facility] URINE AND STOOL UA Sq Epi Moderate /LPF Few /LPF 07/03/2014 [facility] URINE AND STOOL UA Leuk Est Moderate *ABN* (07/03/14 2:59 PM) Negative 07/03/2014 [facility] URINE AND STOOL UA Spec Grav 1.020 <=1.030 07/03/2014 [facility] URINE AND STOOL UA Color Yellow *NA* (07/03/14 2:59 PM) Yellow 07/03/2014 [facility] URINE AND STOOL UA pH 6.0 5.0 - 8.0 07/03/2014 [facility] URINE AND STOOL UA Turbidity Slight *ABN* (07/03/14 2:59 PM) Clear 07/03/2014 [facility] URINE AND STOOL UA Glucose 500 mg/dL Negative mg/dL 07/03/2014 [facility] URINE AND STOOL UA Protein Negative mg/dL Negative mg/dL 07/03/2014 [facility] URINE AND STOOL UA Blood Negative (07/03/14 2:59 PM) Negative 07/03/2014 [facility] URINE AND STOOL UA Ketones Negative mg/dL Negative mg/dL 07/03/2014 [facility] URINE AND STOOL UA Bili Negative *NA* (07/03/14 2:59 PM) Negative 07/03/2014 [facility] CARDIAC ENZYMES CK MB Index 2.6 0.0 - 2.5 07/03/2014 [facility] CARDIAC ENZYMES Troponin-I 0.10 0.00 - 0.40 07/03/2014 [facility] CARDIAC ENZYMES CK MB 2.3 0.5 - 3.6 07/03/2014 [facility] CARDIAC ENZYMES Total CK 88 12 - 191 07/03/2014 [facility] CHEM PANEL Magnesium Lvl 1.8 1.8 - 2.4 07/03/2014 [facility] ELECTROLYTES Sodium Lvl 133 135 - 145 07/03/2014 [facility] ELECTROLYTES Potassium Lvl 3.9 3.5 - 5.1 07/03/2014 [facility] ELECTROLYTES Chloride Lvl 97 95 - 109 07/03/2014 [facility] ELECTROLYTES Alk Phos 147 39 - 136 07/03/2014 [facility] ELECTROLYTES Bili Total 0.5 0.2 - 1.3 07/03/2014 [facility] ELECTROLYTES ALT 97 0 - 65 07/03/2014 [facility] ELECTROLYTES AST 80 0 - 37 07/03/2014 [facility] ELECTROLYTES Total Protein 7.8 6.4 - 8.4 07/03/2014 [facility] ELECTROLYTES Albumin Lvl 3.6 3.5 - 5.0 07/03/2014 [facility] ELECTROLYTES CO2 27 24 - 32 07/03/2014 [facility] ELECTROLYTES Calcium Lvl 9.0 8.5 - 10.5 07/03/2014 [facility] ELECTROLYTES Creatinine Lvl 1.0 0.5 - 1.4 07/03/2014 [facility] ELECTROLYTES A/G Ratio 0.9 0.7 - 1.6 07/03/2014 [facility] ELECTROLYTES Globulin 4.2 2.0 - 4.0 07/03/2014 [facility] ELECTROLYTES B/C Ratio 12 6 - 25 07/03/2014 [facility] ELECTROLYTES AGAP 12.9 10.0 - 20.0 07/03/2014 [facility] ELECTROLYTES eGFR 60 07/03/2014 <sup>1</sup>Result Comment: The eGFR is calculated using the CKD-EPI formula. In most young, healthy individuals the eGFR will be >90 mL/min/1.73m2. The eGFR declines with age. An eGFR of 60-89 may be normal in some populations, particularly the elderly, for whom the CKD-EPI formula has not been extensively validated. Use of the eGFR is not recommended in the following populations:& lt;br/>
Individuals with unstable creatinine concentrations, including patients and those with serious co-morbid conditions.

Patients with extremes in muscle mass or diet.

The data above are obtained from the National Kidney Disease Education Program (NKDEP) which additionally recommends that when the eGFR is used in patients with extremes of body mass index for purposes of drug dosing, the eGFR should be multiplied by the estimated BMI. [facility] ELECTROLYTES Glucose Lvl 304 70 - 99 07/03/2014 <sup>2</sup>Interpretive Data: Adult reference range values reflect the clinical guidelines
of the [employer]. [facility] ELECTROLYTES BUN 12 7 - 22 07/03/2014 [facility] PTT 28.5 22.9 - 35.8 07/03/2014 <sup>4</sup>Interpretive Data: Heparin Therapeutic Range: 57 - 92 Seconds [facility] PT 12.7 12.0 - 14.7 07/03/2014 [facility] INR 0.95 0.85 - 1.17 07/03/2014 <sup>3</sup>Interpretive Data: RECOMMENDED RANGES FOR PROTIME INR:
2.0-3.0 for most medical and surgical thromboembolic states.
2.5-3.5 for artificial heart valves and recurrent embolism.

INR SHOULD BE USED ONLY FOR PATIENTS ON STABLE ANTICOAGULANT THERAPY. [facility] HEMATOLOGY Monocytes # 0.7 0.0 - 0.8 07/03/2014 [facility] HEMATOLOGY Eosinophils # 0.2 0.0 - 0.5 07/03/2014 [facility] HEMATOLOGY Basophils # 0.1 0.0 - 0.2 07/03/2014 [facility] Lymphocytes # 3.1 1.0 - 5.5 07/03/2014 [facility] HEMATOLOGY Eosinophils 2.1 0.0 - 4.0 07/03/2014 [facility] Basophils 1.1 0.0 - 1.0 07/03/2014 [facility] Monocytes 6.6 2.0 - 12.0 07/03/2014 [facility] Segs-Bands # 5.8 1.5 - 8.1 07/03/2014 [facility] Segs 59.1 45.0 - 75.0 07/03/2014 [facility] Lymphocytes 31.1 20.0 - 40.0 07/03/2014 [facility] Hgb 14.3 12.0 - 16.0 07/03/2014 [facility] RBC 4.35 4.20 - 5.40 07/03/2014 [facility] WBC 9.8 3.7 - 10.4 07/03/2014 [facility] Hct 40.8 36.0 - 48.0 07/03/2014 [facility] MCH 32.9 27.0 - 31.0 07/03/2014 [facility] Platelet 221 133 - 450 07/03/2014 [facility] MCHC 35.1 32.0 - 36.0 07/03/2014 [facility] RDW 13.2 11.5 - 14.5 07/03/2014 [facility] MCV 93.8 80.0 - 98.0 07/03/2014 [facility] MPV 9.5 7.4 - 10.4 07/03/2014 [facility] Pathology Reports No Data Provided for This Section Diagnostic Reports Report Value Date Source Foot series DX Clinical Indication: - 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 There has been amputation through the distal 1st metatarsal. Multiple foci of air in the adjacent soft tissues. Lucencies overlying the distal aspect of the remaining 1st metatarsal on the frontal projection are most likely in the underlying soft tissues. No fracture or dislocation. If there is further concern, recommend follow-up radiographs or bone scan for complete assessment. IMPRESSION: There has been amputation through the distal 1st metatarsal. Multiple foci of air in the adjacent soft tissues are likely postsurgical, although gas recent soft tissue infection cannot be excluded radiographically. A small ossific fragment in the plantar soft tissues underlying the distal aspect of the remaining 1st metatarsal.. No definite radiographic evidence of osteomyelitis. SL: [id number] 01/03/2017 [facility] Chest 1view DX Patient Name: JE TIPTON : 1950; Age: 66 years y/o Female MR: [id number] Study: Chest 1view DX 12/31/2016 5:52 PM CDT Ordering Physician: Ward Hines MD Clinical Indication: - abnormal chest sounds; Comparison: 07/02/2015 Chest one view Lungs are clear. Stable mild cardiomegaly. No overt congestive heart failure or pulmonary edema. No pleural effusion or pneumothorax. Degenerative changes are present within the shoulders and spine. IMPRESSION: Stable mild cardiomegaly, without additional acute findings. SL: [id number] 12/31/2016 [facility] Ext Lower Arterial bilat w pressure US Please refer to the heart lab report, located under vascular in [facility]. 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 - Osteomyelitis. Comparison: None TECHNIQUE: Multiplanar, multisequence noncontrast imaging of the left forefoot followed by postcontrast fat-saturated T1 images after IV contrast. IV contrast: 15 mL MultiHance. FINDINGS: Bones: There is focal increased STIR signal with associated enhancement and decreased T1 signal within the dorsal aspect of the base of the 1st proximal phalanx concerning for early osteomyelitis (image 22 of the sagittal series). There is increased STIR signal within the majority of the 2nd proximal phalanx without significant associated decreased T1 signal or enhancement, which is indeterminant. Remaining bone marrow signal appears within normal limits. No other areas of abnormal marrow edema or enhancement to suggest osteomyelitis. No acute fracture. Soft tissues: Mild subcutaneous edema in the plantar aspect of the forefoot. No focal fluid collection. Muscles: Mild diffuse fatty atrophy of the intrinsic muscles of the forefoot. No significant muscular edema or abnormal enhancement. Tendons: No focal tendon signal abnormality, or evidence for tenosynovitis. IMPRESSION: 1. Findings concerning for focal early osteomyelitis involving the dorsal aspect of the base of the 1st proximal phalanx. 2. Increased STIR signal within the 2nd proximal phalanx without significant associated enhancement or decreased T1 signal is indeterminate for osteomyelitis. 3. Mild subcutaneous edema in the plantar aspect of the forefoot. 4. Mild diffuse fatty atrophy of the intrinsic muscles of the forefoot may relate to disuse or denervation changes. SL: [id number] 12/30/2016 [facility] Chest/Abdomen/Pelvis w IV contrast CT EXAM: CT CHEST WITH CONTRAST. EXAM: CT ABDOMEN PELVIS WITH CONTRAST. DATE: Jul 03, 2015 09:35:09 AM INDICATION: Fall. Large posterior right flank hematoma. COMPARISON: None. TECHNIQUE: Multiple CT images of the chest, abdomen and pelvis were obtained with reconstructions in the coronal and sagittal planes. Delayed axial images are also provided. FINDINGS: Limited views of the neck soft tissues are normal. The heart and great vessels and mediastinum are within normal limits. There is no mediastinal hematoma. . Small hypodense pericardial effusion is identified. Thoracic esophagus is normal in appearance. The trachea and main bronchi are patent. The lungs are clear bilaterally. No pleural effusion or pneumothorax. 4 mm hypodense focus is seen in the dependent portion of the gallbladder (series 3, image 56). The liver, spleen, bilateral adrenal glands, pancreas, and bilateral kidneys are within normal limits. No subdiaphragmatic lymphadenopathy is seen. No intraperitoneal free air or fluid is identified. The large and small bowel are normal in caliber. . A few sigmoid colon diverticula are seen without evidence of diverticulitis. Moderate amount stool is seen in the colon. Moderate atherosclerotic disease is identified. No fracture are identified. There is grade 1 anterolisthesis of L4 over L5 with advanced facet arthropathy. Posterior central focus of air at this level is likely related to degenerative changes. No soft tissue hematoma is identified. Minimal subcutaneous change contusion is seen in the right posterior back. IMPRESSION: 1.No acute injury in the chest, abdomen and pelvis. 2. Small pericardial effusion. 3. 4 mm gallbladder polyp versus stone. SL: 07/03/2015 [facility] Brain wo contrast CT CT head without contrast. CLINICAL INDICATION: Pain Post Trauma. TECHNIQUE: Multiple contiguous axial images of the brain was performed without IV contrast. Comparison is made to 07/03/2014. FINDINGS: Ventricles and subarachnoid spaces are stable. No intracranial hemorrhage. No extra-axial fluid collection. Nicholson-white distinction is preserved. No mass, mass-effect, or midline shift. Mild chronic inflammatory change of the paranasal sinus. Partial opacification of the mastoid air cells. IMPRESSION: Stable CT head without acute intracranial process detected. MRI brain if indicated. SL: 07/02/2015 [facility] Spine cervical series DX PROCEDURE: Spine cervical AP lat obliques odontoid REASON FOR EXAM: See Clinic Indication CLINICAL INDICATION: Pain Post Trauma COMPARISON: None. FINDINGS: No definite acute process. No acute fracture or pathologic subluxation. Alignment of the cervical spine is grossly anatomic. Prevertebral soft tissues are within normal limits. The odontoid and lateral masses are intact. Mild anterior endplate spurring is present. SL: 07/02/2015 [facility] Spine lumbar series DX PROCEDURE: Spine lumbar series 5 views REASON FOR EXAM: See Clinic Indication CLINICAL INDICATION: Pain Post Trauma COMPARISON: None. FINDINGS: No definite acute process detected. Alignment of the lumbar spine is anatomic. Vertebral body heights and disc spaces are maintained. No acute compression fracture is present. Mild anterior endplate spurring. No pars defect identified. Marked atherosclerotic calcification of the abdominal aorta and iliac arteries. Abundance of stool within the colon. SL: 07/02/2015 [facility] Wrist complete DX PROCEDURE: Right Wrist complete ( 3 views) REASON FOR EXAM: See Clinic Indication CLINICAL INDICATION: Pain Post Trauma COMPARISON: None. FINDINGS: Mild diffuse soft tissue swelling about the wrist. No definite acute fracture or dislocation. Marked narrowing of the radiocarpal joint. Subchondral cystic change is present within the distal pole of the scaphoid bone. SL: 07/02/2015 [facility] Ribs unilateral 3 views w PA chest DX PROCEDURE: Right Ribs unilateral 3 views with PA chest REASON FOR EXAM: See Clinic Indication CLINICAL INDICATION: Pain Post Trauma COMPARISON: 07/03/2014. FINDINGS: No acute cardiopulmonary process detected. Stable mild cardiomegaly. No definite failure. No definite displaced rib fracture or rib lesion detected. Abundance of stool within the colon. SL: 07/02/2015 [facility] Chest 2 views CHEST 2 VIEWS HX: Chest pain COMPARISON: NONE. FINDINGS: The lungs are free of consolidation or pleural effusion and the mediastinal silhouette is within normal limits of size. The visualized osseous structures are grossly negative. IMPRESSION: Negative chest. SL: 07/03/2014 [facility] Brain wo contrast CT CT BRAIN WITHOUT CONTRAST INDICATION: Weakness COMPARISON: None FINDINGS: There is no evidence of acute vascular insults, space occupying lesions, hemorrhage, hydrocephalus, midline shift, or extra-axial collections. The calvarium is intact. IMPRESSION: No acute intracranial abnormalities are visualized. SL: 07/03/2014 [facility] Consultation Notes No Data Provided for This Section Discharge Summaries No Data Provided for This Section History and Physicals No Data Provided for This Section Vital Signs Vital Sign Value Date Comments Source Systolic (mm Hg) 170 01/05/2017 [facility] Diastolic (mm Hg) 82 01/05/2017 [facility] Respitory Rate 18 01/05/2017 [facility] Temperature Oral (F) 98.2 F 01/05/2017 [facility] Heart Rate 100 01/05/2017 [facility] Temperature Oral (F) 98.1 F 01/05/2017 [facility] Respitory Rate 16 01/05/2017 [facility] Heart Rate 97 01/05/2017 [facility] Systolic (mm Hg) 156 01/05/2017 [facility] Diastolic (mm Hg) 66 01/05/2017 [facility] Respitory Rate 18 01/05/2017 [facility] Heart Rate 97 01/05/2017 [facility] Systolic (mm Hg) 131 01/05/2017 [facility] Diastolic (mm Hg) 72 01/05/2017 [facility] Temperature Oral (F) 98.7 F 01/05/2017 [facility] Weight 91.818 12/30/2016 [facility] Height 170.18 cm 12/30/2016 [facility] BMI Calculated 31.7 12/30/2016 [facility] Temperature Oral (F) 97.6 F 11/09/2016 [facility] Weight 97.727 11/09/2016 [facility] Respitory Rate 20 11/09/2016 [facility] Heart Rate 89 11/09/2016 [facility] BMI Calculated 33.74 11/09/2016 [facility] Height 170.18 cm 11/09/2016 [facility] Systolic (mm Hg) 221 11/09/2016 [facility] Diastolic (mm Hg) 115 11/09/2016 [facility] Heart Rate 66 07/03/2015 [facility] Respitory Rate 17 07/03/2015 [facility] Systolic (mm Hg) 132 07/03/2015 [facility] Diastolic (mm Hg) 85 07/03/2015 [facility] Temperature Oral (F) 98.2 F 07/03/2015 [facility] Weight 98.182 07/03/2015 [facility] Height 170.18 cm 07/03/2015 [facility] BMI Calculated 33.9 07/03/2015 [facility] Temperature Oral (F) 98.2 F 07/03/2015 [facility] Systolic (mm Hg) 130 07/03/2015 [facility] Diastolic (mm Hg) 81 07/03/2015 [facility] Heart Rate 65 07/03/2015 [facility] Respitory Rate 18 07/03/2015 [facility] Heart Rate 77 07/02/2015 [facility] Systolic (mm Hg) 163 07/02/2015 [facility] Diastolic (mm Hg) 89 07/02/2015 [facility] Respitory Rate 18 07/02/2015 [facility] Respitory Rate 18 07/02/2015 [facility] Heart Rate 71 07/02/2015 [facility] Systolic (mm Hg) 156 07/02/2015 [facility] Diastolic (mm Hg) 80 07/02/2015 [facility] BMI Calculated 34.53 07/02/2015 [facility] Height 170.18 cm 07/02/2015 [facility] Weight 100 07/02/2015 [facility] Heart Rate 75 07/02/2015 [facility] Respitory Rate 20 07/02/2015 [facility] Systolic (mm Hg) 213 07/02/2015 [facility] Diastolic (mm Hg) 103 07/02/2015 [facility] Temperature Oral (F) 98.9 F 07/02/2015 [facility] Temperature Oral (F) 98.2 F 07/03/2014 [facility] Diastolic (mm Hg) 75 07/03/2014 [facility] Heart Rate 75 07/03/2014 [facility] Systolic (mm Hg) 132 07/03/2014 [facility] Respitory Rate 18 07/03/2014 [facility] Weight 100 07/03/2014 [facility] BMI Calculated 34.53 07/03/2014 [facility] Height 170.18 cm 07/03/2014 [facility] Systolic (mm Hg) 150 07/03/2014 [facility] Respitory Rate 20 07/03/2014 [facility] Heart Rate 78 07/03/2014 [facility] Temperature Oral (F) 97.7 F 07/03/2014 [facility] Diastolic (mm Hg) 58 07/03/2014 [facility] Encounters Location Location Details Encounter Type Encounter Number Reason For Visit Attending Provider ADM Date DC Date Status Source [facility] [id number] 719.41/ 719.46 MONTEZ SYED 05/10/2011 Active [facility] [id number] Finesse Gallego 07/03/2014 07/03/2014 [facility] [id number] Finesse Gallego 07/02/2015 07/02/2015 [facility] [id number] Mariana Garcia 07/03/2015 07/03/2015 [facility] [id number] Mainor Wilson 11/09/2016 11/09/2016 [facility] [id number] Sha Carcamo 12/30/2016 01/05/2017 [facility] Procedures Procedure Code Date Perfomer Comments Source Cataract surgery [id number] [facility] Assessment and Plan Assessment and Plan Date Source Extracted from:Title: Discharge Summary * Author: Sha Carcamo MD Date: 01/05/17 Discharge Information Disposition to home Condition stable Medications: See med reconciliation form Diet diabetic Discharge Plan Follow-up with podiatry, ID and PCP in 1 week In evaluating worsening symptoms patient was a come back to the ED for further evaluation Discharge summary took greater than 35 minutes Extracted from:Title: Clinical Document Author: Sha Carcamo MD Date: 01/04/17 Progress Note SUBJECTIVE: Patient is doing much better today with no other issues. Likely discharge home tomorrow. Patient seen and evaluated at bedside. No overnight events. Denies chest pain, nausea, vomiting, diarrhea, headache, lightheadness, abdomen pain or dizziness. OBJECTIVE: Vitals Tmp(F) Pulse BP RR SpO2 FIO2 01/04 19:36 98.4 85 156/69 14 97 --- 01/04 16:28 97.3 61 164/76 16 95 --- 01/04 12:26 98.3 63 130/71 17 100 --- 01/04 07:56 98 70 119/65 16 97 --- 01/04 04:45 97.6 78 134/70 16 96 --- 24 Hr Tmax: 98.8F (37.11c) at 01/04 00:30 Vital Signs are the last 5 in the past 48 hours. I&O Record In Out Bal 01/04 24hr Tot 200 0 200 01/03 24hr Tot 1958 5 1952 Labs (Last four charted values) WBC 9.2 (DEC 17) H 11.9 (MAMIE 15) H 12.9 (MAMIE 14) H 11.2 (MAMIE 13) Hgb L 7.5 (MAMIE 17) L 8.3 (MAMIE 15) L 8.9 (MAMIE 14) L 9.2 (MAMIE 13) Hct L 22.2 (MAMIE 17) L 24.6 (MAMIE 15) L 26.2 (MAMIE 14) L 27.8 (MAMEI 13) Plt 256 (MAMIE 17) 266 (MAMIE 15) 275 (MAMIE 14) 280 (MAMIE 13) Na 135 (MAMIE 17) L 134 (MAMIE 15) 135 (MAMIE 14) L 133 (MAMIE 13) K 3.8 (MAMIE 17) 3.9 (MAMIE 15) 4.0 (MAMIE 14) 4.2 (MAMIE 13) CO2 27 (MAMIE 17) 26 (MAMIE 15) 27 (MAMIE 14) 27 (MAMIE 13) Cl 102 (MAMIE 17) 100 (MAMIE 15) 101 (MAMIE 14) 100 (MAMIE 13) Cr 0.67 (MAMIE 17) 0.67 (MAMIE 15) 0.64 (MAMIE 14) 0.80 (MAMIE 13) BUN 7 (MAMIE 17) 7 (MAMIE 15) L 6 (MAMIE 14) 9 (MAMIE 13) Glucose Random H 215 (MAMIE 17) H 134 (MAMIE 15) 82 (MAMIE 14) 93 (MAMIE 13) Mg 1.9 (MAMIE 13) Phos 3.4 (MAMIE 13) Ca L 8.0 (MAMIE 17) L 8.0 (MAMIE 15) 8.8 (MAMIE 14) L 8.3 (MAMIE 13) PT H 14.8 (MAMIE 13) H 15.7 (MAMIE 13) INR 1.14 (MAMIE 13) H 1.22 (MAMIE 13) PTT H 45.9 (MAMIE 13) H 44.6 (MAMIE 13) Medications (31) Active Scheduled: (11) Please bring pt's own med amitiza (lubiprostone) to pharm reminder, DIDIERC, QSHIFT RN-Do not give Vanc till trough drawn01/02/17@17:30 Attn:N, MISC, ONCE amoxicillin-clavulanate 875-125 mg TAB 1 tab, PO, Q12H aspirin 81 mg ECT 81 mg 1 tab, PO, Daily cholecalciferol 5,000 intl units CAP 5,000 IntlUnit 1 cap, PO, Daily clopidogrel 75 mg TAB 75 mg 1 tab, PO, Daily docusate sodium 100 mg CAP 100 mg 1 cap, PO, BID heparin 5000 unit/1 ml INJ VL 5,000 unit 1 mL, SUB-Q, Q8Hnow levothyroxine 200 microgram TAB 200 microgram 1 tab, PO, Q630AM lubiprostone 24 microgram, PO, BID pregabalin 50mg CAP 150 mg 3 cap, PO, BID Continuous: (2) Lactated Ringers 1,000 mL 1,000 mL, IV, 100 ml/hr sodium chloride 0.9% 1000 ml INJ 1,000 mL 1,000 mL, IV, 100 ml/hr PRN: (18) acetaminophen-hydrocodone 325 mg-10 mg TAB 2 tab, PO, Q4H acetaminophen-hydrocodone 325 mg-5 mg tab 1 tab, PO, Q4H Dextrose 50% 50 ml INJ syringe 12.5 gm 25 mL, IVP, PRN Dextrose 50% 50 ml INJ syringe 25 gm 50 mL, IVP, PRN glucagon recombinant 1 mg PDR 1 mg, IM, PRN HYDROmorphone 1mg/1ml inj amp 0.3 mg 0.3 mL, IVP, Q3H HYDROmorphone 1mg/1ml inj amp 0.5 mg 0.5 mL, IV, Q3H insulin aspart 100 unit/ml 3ml Pen 1 unit 0.01 mL, SUB-Q, TID-Before Meals insulin aspart 100 unit/ml 3ml Pen 2 unit 0.02 mL, SUB-Q, TID-Before Meals insulin aspart 100 unit/ml 3ml Pen 3 unit 0.03 mL, SUB-Q, TID-Before Meals insulin aspart 100 unit/ml 3ml Pen 4 unit 0.04 mL, SUB-Q, TID-Before Meals insulin aspart 100 unit/ml 3ml Pen 5 unit 0.05 mL, SUB-Q, TID-Before Meals insulin aspart 100 unit/ml 3ml Pen 1 unit 0.01 mL, SUB-Q, Bedtime insulin aspart 100 unit/ml 3ml Pen 2 unit 0.02 mL, SUB-Q, Bedtime insulin aspart 100 unit/ml 3ml Pen 3 unit 0.03 mL, SUB-Q, Bedtime insulin aspart 100 unit/ml 3ml Pen 4 unit 0.04 mL, SUB-Q, Bedtime ondansetron 4 mg/2ml INJ VL 4 mg 2 mL, IVP, Q6H sodium chloride 0.9% 10 ml flush syr BD 10 ml, IVP, PRN PHYSICAL EXAM: General: NAD, alert and oriented x3 HEENT: normacephalic, atraumatic, PERRLA, EOMI, supple w/ good ROM, normal pharynx Pulm: CTA B/L no w/r/r/c CV: +S1, +S2 no m/r/g, RRR, good cap refill, No JVD, no carotid bruits Abd: ND, NTTP, no rebound or guarding, BS+ Skin: intact, warm and dry, no rashes Musculoskeletal: 5/5 strength, normal range of motion, no swollen joints Neuro: alert and oriented x3, CN 2-12 intact Psychiatry: good judgment and insight Extremities: no edema, cyanosis or clubbing, left big toe gangrene : has gamez ASSESSMENT AND PLAN: 1. Left big toe gangrene/left foot cellulitis/diabetic footpodiatry, vascular surgery and ID consulted, IV antibiotics, blood cultures: No growth to date, pain control, arterial Doppler 01/01: Status post bilateral lower extremity angiogram with left SFA angioplasty and left anterior tibial angioplasty, no stenting, podiatry scheduled for amputation for Tuesday, January 03, 201701/02: Scheduled for left big toe amputation tomorrow by podiatry excellent 01/03: Status post left foot partial first ray amputation done on 01/03/2017, okay to discharge home tomorrow per podiatry, discharged on oral Augmentin 875 mg p.o. twice daily per ID for 1 week, needs to follow-up with podiatry and ID in 1 week in their office, okay for weightbearing as tolerated -01/04: Discharge home tomorrow, monitor hemoglobin level 2. Type 2 diabetesinsulin sliding scale, Accu-Cheks, A1c: 9.1 3. Hypertensionstable, continue same home medications 4. Prophylaxis: Lovenox, Pepcid 5. FEN: IVFs, diabetic diet 6. PT/OT- eval and treat 7. Peripheral neuropathycontinue with Lyrica 8. Anemia likely secondary chronicrepeat hemoglobin in the morning if low transfuse 1 unit and discharged home, less likely from surgery as hemoglobin was stable even prior to surgery. Deposition: Inpatient, ID, vascular surgery and podiatry consulted Plan to discharge home tomorrow 01/05/2017 [facility] Plan of Care No Data Provided for This Section Social History Social History Date Source Social History TypeResponse Smoking Status Never smoker; Ready to change: No; Concerns about tobacco use in household: No; Exposure to Tobacco Smoke None; Cigarette Smoking Last 365 Days No; Reg Smoking Cessation Counseling No 12/30/2016 [facility] Family History No Data Provided for This Section Advance Directives No Data Provided for This Section Functional Status No Data Provided for This Section
--- OUTSIDE RECORDS SUMMARY | 2019-01-15 16:14 | XMS REPORT | Summary of Care ---
Author Author [facility] Organization [facility] Address Unknown Phone Unavailable Encounter JING Ricketts(JO) [id number] Date(s): 12/30/16 - 01/05/17 [facility] [address] [place] [address]- Final: Gangrene and necrosis of lung Discharge Disposition: Home or Self Care Attending Physician: Sha Carcamo MD Admitting Physician: Sha Carcamo MD Referring Physician: Ward Hines MD Vital Signs 1 2 3 Most recent to oldest [Reference Range]: 170.18 cm (12/30/16 3:00 AM) Height 98.2 DegF (01/05/17 3:34 PM) 98.1 DegF (01/05/17 12:12 PM) 98.7 DegF (01/05/17 8:00 AM) Temperature Oral [96.4-99.1 DegF] 170/82 mmHg *HI* (01/05/17 3:34 PM) 156/66 mmHg *HI* (01/05/17 12:12 PM) 131/72 mmHg (01/05/17 8:00 AM) Blood Pressure [90-140/60-90 mmHg] 18 BRMIN (01/05/17 3:34 PM) 16 BRMIN (01/05/17 12:12 PM) 18 BRMIN (01/05/17 8:00 AM) Respiratory Rate [14-20 BRMIN] 100 bpm (01/05/17 3:34 PM) 97 bpm (01/05/17 12:12 PM) 97 bpm (01/05/17 8:00 AM) Peripheral Pulse Rate [60-100 bpm] 91.818 kg (12/30/16 3:00 AM) Weight 31.7 m2 (12/30/16 3:00 AM) Body Mass Index Problem List Condition Effective Dates Status Health Status Informant Diabetes(Confirmed) Resolved Hypertension(Confirm Resolved ed) Neuropathy(Confirmed Resolved ) Sciatica(Confirmed) Resolved Allergies, Adverse Reactions, Alerts Substance Reaction Severity Status Actos Active Medications Please bring pt's own med amitiza (lubiprostone) to pharm Please bring pt's own med amitiza (lubiprostone) to pharm, reminder, Drug form : MISC, Route: MISC, QSHIFT, 12/31/16 0:00:00 CDT, Duration: 30 day, Stop date: 01/29/17 16:00:00 CDT Start Date: 12/31/16 Stop Date: 01/05/17 Status: Discontinued RN-Do not give vanc till trough drawn12/31/16@17:30 RN-Do not give vanc till trough drawn12/31/16@17:30 , Attn:RN, Drug form : MISC, Route: MISC, ONCE, 12/31/16 17:00:00 CDT, Stop date: 12/31/16 17:00:00 C DT Start Date: 12/31/16 Stop Date: 12/31/16 Status: Completed RN-Do not give Vanc till trough drawn01/02/17@17:30 RN-Do not give Vanc till trough drawn01/02/17@17:30 , Attn:N, Drug form: M ISC, Route: MISC, ONCE, 01/02/17 17:00:00 CDT, Stop date: 01/02/17 17:00:00 CDT Start Date: 01/02/17 Stop Date: 01/05/17 Status: Completed acetaminophen-hydrocodone 325 mg-10 mg oral tablet 2 tab, Route: PO, Drug Form: TAB, Dosing Weight 91.818, kg, Q4H, PRN Pain Score 7-10, Start date: 01/01/17 15:30:00 CDT, Duration: 30 day, Stop date: 01/31/17 1 5:29:00 CDT Notes: Do not exceed 4gm/day of acetaminophen. (Same as: [place] 325/10) Start Date: 01/01/17 Stop Date: 01/05/17 Status: Discontinued acetaminophen-hydrocodone 325 mg-5 mg oral tablet 1 tab, Route: PO, Drug Form: TAB, Dosing Weight 91.818, kg, Q4H, PRN Pain Score 4-6, Start date: 01/01/17 15:30:00 CDT, Duration: 30 day, Stop date: 01/31/17 15 :29:00 CDT Notes: (Same as: [place] 325/5) Do not exceed 4gm/day of acetaminophen. Start Date: 01/01/17 Stop Date: 01/05/17 Status: Discontinued acetaminophen-hydrocodone 325 mg-5 mg oral tablet 2 tab, Route: PO, Drug Form: TAB, Dosing Weight 91.818, kg, Q4H, PRN Pain Score 7-10, Start date: 12/30/16 5:41:00 CDT, Duration: 30 day, Stop date: 01/29/17 5: 40:00 CDT Notes: (Same as: [place] 325/5) Do not exceed 4gm/day of acetaminophen. Start Date: 12/30/16 Stop Date: 01/01/17 Status: Discontinued Amitiza 24 microgram, Route: PO, Drug form: CAP, BID, Dosing Weight 91.818, kg, Start da te: 12/31/16 9:00:00 CDT, Duration: 30 day, Stop date: 01/29/17 17:00:00 CDT Start Date: 12/31/16 Stop Date: 01/05/17 Status: Discontinued Amitiza 24 mcg oral capsule 24 microgram=1 cap, PO, BID, 0 Refill(s) Start Date: 12/30/16 Status: Ordered ANES fentaNYL 25 microgram, Route: IVP, Q5Min, Dosing Weight 91.818, kg, PRN Pain Score 4-6, P riority: Routine, Start date: 01/03/17 12:01:00 CDT, Duration: 4 doses or times, Stop date: Limited # of times Start Date: 01/03/17 Stop Date: 01/03/17 Status: Discontinued ANES flumazenil 0.2 mg, Route: IVP, PRN, Dosing Weight 91.818, kg, PRN Benzodiazepine Reversal, Initial dose, Start date: 01/03/17 12:01:00 CDT, Duration: 30 day, Stop date: 12:00:00 CDT Start Date: 01/03/17 Stop Date: 01/03/17 Status: Discontinued ANES labetalol 10 mg, Route: IVP, Q5Min, Dosing Weight 91.818, kg, PRN Elevated BP, Start date: 01/03/17 12:01:00 CDT, Duration: 5 doses or times, Stop date: Limited # of times Start Date: 01/03/17 Stop Date: 01/03/17 Status: Discontinued ANES morphine Sulfate 2 mg, Route: IVP, Q5Min, Dosing Weight 91.818, kg, PRN Pain Score 4-6, Start ezequiel e: 01/03/17 12:01:00 CDT, Duration: 5 doses or times, Stop date: Limited # of ti mes Start Date: 01/03/17 Stop Date: 01/03/17 Status: Discontinued ANES naloxone 0.4 mg, Route: IVP, Q2MIN, Dosing Weight 91.818, kg, PRN Narcotic Reversal, Star t date: 01/03/17 12:01:00 CDT, Duration: 8 doses or times, Stop date: Limited # of times Start Date: 01/03/17 Stop Date: 01/03/17 Status: Discontinued ANES ondansetron 4 mg, Route: IVP, ONCE, Dosing Weight 91.818, kg, PRN Nausea & Vomiting, Start date: 01/03/17 12:01:00 CDT Start Date: 01/03/17 Stop Date: 01/03/17 Status: Discontinued aspirin 81 mg tablet, enteric coated 81 mg, 1 tab, Route: PO, Drug form: ECTAB, Daily, Dosing Weight 91.818, kg, Star t date: 12/30/16 19:00:00 CDT, Duration: 30 day, Stop date: 01/29/17 9:00:00 CDT Notes: Do not crush or chew.(Same As: Ecotrin) Start Date: 12/30/16 Stop Date: 01/05/17 Status: Discontinued aspirin 81 mg tablet, enteric coated 81 mg=1 tab, PO, Daily, # 90 tab, 3 Refill(s) Start Date: 12/30/16 Status: Ordered Augmentin 875 mg oral tablet 1 tab, Route: PO, Drug Form: TAB, Dosing Weight 91.818, kg, Q12H, Start date: 21:00:00 CDT, Duration: 30 day, Stop date: 02/03/17 9:00:00 CDT Notes: With food.(Same as: Augmentin 875) Start Date: 01/04/17 Stop Date: 01/05/17 Status: Discontinued Augmentin 875 mg oral tablet 1 tab, PO, Q12H, # 14 tab, 0 Refill(s) Start Date: 01/05/17 Status: Ordered ceFAZolin (ANES) Route: IV, Drug form: INJ, ONCE, Stop date: 01/01/17 14:46:00 CDT Start Date: 01/01/17 Stop Date: 01/01/17 Status: Completed cholecalciferol 5,000 IntlUnit, PO, Daily, 0 Refill(s) Start Date: 12/30/16 Status: Ordered cholecalciferol 5,000 IntlUnit, 1 cap, Route: PO, Drug form: CAP, Daily, Dosing Weight 91.818, k g, Start date: 12/31/16 9:00:00 CDT, Duration: 30 day, Stop date: 01/29/17 9:00: 00 CDT Notes: (Same as: Vitamin D3) Start Date: 12/31/16 Stop Date: 01/05/17 Status: Discontinued clindamycin 150 mg, PO, ABXQ8H, 0 Refill(s) Start Date: 12/30/16 Stop Date: 01/05/17 Status: Discontinued clopidogrel 75 mg oral tablet 75 mg=1 tab, PO, Daily, # 30 tab, 0 Refill(s) Start Date: 01/05/17 Status: Ordered Colace 100 mg oral capsule 100 mg=1 cap, PO, Daily, 0 Refill(s) Start Date: 12/30/16 Status: Ordered Dextrose 50% Syringe 25 gm, 50 mL, Route: IVP, Drug Form: INJ, Dosing Weight 91.818, kg, PRN, PRN Blo od Glucose Results, Start date: 12/30/16 5:43:00 CDT, Duration: 30 day, Stop ezequiel e: 01/29/17 5:42:00 CDT Start Date: 12/30/16 Stop Date: 01/05/17 Status: Discontinued Dextrose 50% Syringe 12.5 gm, 25 mL, Route: IVP, Drug Form: INJ, Dosing Weight 91.818, kg, PRN, PRN B lood Glucose Results, Start date: 12/30/16 5:43:00 CDT, Duration: 30 day, Stop d ate: 01/29/17 5:42:00 CDT Start Date: 12/30/16 Stop Date: 01/05/17 Status: Discontinued docusate 100 mg, 1 cap, Route: PO, Drug form: CAP, BID, Dosing Weight 91.818, kg, Start d ate: 12/30/16 9:00:00 CDT, Duration: 30 day, Stop date: 01/28/17 17:00:00 CDT Notes: (Same as: Colace) (Do Not Crush) Start Date: 12/30/16 Stop Date: 01/05/17 Status: Discontinued fentaNYL (ANES) Route: IV, Drug form: INJ, ONCE, Stop date: 01/03/17 10:43:00 CDT Start Date: 01/03/17 Stop Date: 01/03/17 Status: Completed fentaNYL (ANES) Route: IV, Drug form: INJ, ONCE, Stop date: 01/01/17 14:46:00 CDT Start Date: 01/01/17 Stop Date: 01/01/17 Status: Completed glucagon 1 mg, Route: IM, Drug form: PDR/INJ, PRN, Dosing Weight 91.818, kg, PRN Blood Gl ucose Results, Start date: 12/30/16 5:43:00 CDT, Duration: 30 day, Stop date: 5:42:00 CDT Start Date: 12/30/16 Stop Date: 01/05/17 Status: Discontinued glucosamine 500 mg, PO, Daily, 0 Refill(s) Start Date: 12/30/16 Status: Ordered heparin 5,000 unit, 1 mL, Route: SUB-Q, Drug form: INJ, Q8Hnow, Dosing Weight 91.818, kg , Start date: 12/30/16 17:00:00 CDT, Duration: 30 day, Stop date: 01/29/17 9:00: 00 CDT Notes: porcine heparin Start Date: 12/30/16 Stop Date: 01/05/17 Status: Discontinued heparin (ANES) Route: IV, Drug form: INJ, ONCE, Stop date: 01/01/17 15:12:00 CDT Start Date: 01/01/17 Stop Date: 01/01/17 Status: Completed hydromorphone 0.5 mg, 0.5 mL, Route: IV, Drug form: INJ, Q3H, Dosing Weight 91.818, kg, PRN Pa in Score 7-10, Start date: 01/01/17 15:30:00 CDT, Duration: 30 day, Stop date: 0 01/31/17 15:29:00 CDT Start Date: 01/01/17 Stop Date: 01/05/17 Status: Discontinued hydromorphone 0.3 mg, 0.3 mL, Route: IVP, Drug form: INJ, Q3H, Dosing Weight 91.818, kg, PRN P ain Score 4-6, Start date: 01/01/17 15:30:00 CDT, Duration: 30 day, Stop date: 0 01/31/17 15:29:00 CDT Start Date: 01/01/17 Stop Date: 01/05/17 Status: Discontinued hydromorphone (ANES) Route: IV, Drug form: INJ, ONCE, Stop date: 01/01/17 14:57:00 CDT Start Date: 01/01/17 Stop Date: 01/01/17 Status: Completed insulin aspart 3 unit, 0.03 mL, Route: SUB-Q, Drug form: SOLN, Bedtime, Dosing Weight 91.818, k g, PRN Blood Glucose Results, Start date: 12/30/16 5:43:00 CDT, Duration: 30 day , Stop date: 01/29/17 5:42:00 CDT Notes: Roll in palms of hands gently; Do not shake vigorously. (Same as: NovoKATJA Womack)"single patient use only"WASTE: F/P - Black; E - Municipal Trash Bin Stable f or 28 days at room temperature.Expires in days from Date Start Date: 12/30/16 Stop Date: 01/05/17 Status: Discontinued insulin aspart 4 unit, 0.04 mL, Route: SUB-Q, Drug form: SOLN, Bedtime, Dosing Weight 91.818, k g, PRN Blood Glucose Results, Start date: 12/30/16 5:43:00 CDT, Duration: 30 day , Stop date: 01/29/17 5:42:00 CDT Notes: Roll in palms of hands gently; Do not shake vigorously. (Same as: Celia Womack)"single patient use only"WASTE: F/P - Black; E - Municipal Trash Bin Stable f or 28 days at room temperature.Expires in days from Date Start Date: 12/30/16 Stop Date: 01/05/17 Status: Discontinued insulin aspart 1 unit, 0.01 mL, Route: SUB-Q, Drug form: SOLN, Bedtime, Dosing Weight 91.818, k g, PRN Blood Glucose Results, Start date: 12/30/16 5:43:00 CDT, Duration: 30 day , Stop date: 01/29/17 5:42:00 CDT Notes: Roll in palms of hands gently; Do not shake vigorously. (Same as: Celia Womack)"single patient use only"WASTE: F/P - Black; E - Municipal Trash Bin Stable f or 28 days at room temperature.Expires in days from Date Start Date: 12/30/16 Stop Date: 01/05/17 Status: Discontinued insulin aspart 2 unit, 0.02 mL, Route: SUB-Q, Drug form: SOLN, Bedtime, Dosing Weight 91.818, k g, PRN Blood Glucose Results, Start date: 12/30/16 5:43:00 CDT, Duration: 30 day , Stop date: 01/29/17 5:42:00 CDT Notes: Roll in palms of hands gently; Do not shake vigorously. (Same as: Celia Womack)"single patient use only"WASTE: F/P - Black; E - Municipal Trash Bin Stable f or 28 days at room temperature.Expires in days from Date Start Date: 12/30/16 Stop Date: 01/05/17 Status: Discontinued insulin aspart 3 unit, 0.03 mL, Route: SUB-Q, Drug form: SOLN, TID-Before Meals, Dosing Weight 91.818, kg, PRN Blood Glucose Results, Start date: 12/30/16 5:43:00 CDT, Duratio n: 30 day, Stop date: 01/29/17 5:42:00 CDT Notes: Roll in palms of hands gently; Do not shake vigorously. (Same as: Celia Womack)"single patient use only"WASTE: F/P - Black; E - Municipal Trash Bin Stable f or 28 days at room temperature.Expires in days from Date Start Date: 12/30/16 Stop Date: 01/05/17 Status: Discontinued insulin aspart 4 unit, 0.04 mL, Route: SUB-Q, Drug form: SOLN, TID-Before Meals, Dosing Weight 91.818, kg, PRN Blood Glucose Results, Start date: 12/30/16 5:43:00 CDT, Duratio n: 30 day, Stop date: 01/29/17 5:42:00 CDT Notes: Roll in palms of hands gently; Do not shake vigorously. (Same as: Celia Womack)"single patient use only"WASTE: F/P - Black; E - Municipal Trash Bin Stable f or 28 days at room temperature.Expires in days from Date Start Date: 12/30/16 Stop Date: 01/05/17 Status: Discontinued insulin aspart 5 unit, 0.05 mL, Route: SUB-Q, Drug form: SOLN, TID-Before Meals, Dosing Weight 91.818, kg, PRN Blood Glucose Results, Start date: 12/30/16 5:43:00 CDT, Duratio n: 30 day, Stop date: 01/29/17 5:42:00 CDT Notes: Roll in palms of hands gently; Do not shake vigorously. (Same as: NovoLO G)"single patient use only"WASTE: F/P - Black; E - Municipal Trash Bin Stable f or 28 days at room temperature.Expires in days from Date Start Date: 12/30/16 Stop Date: 01/05/17 Status: Discontinued insulin aspart 1 unit, 0.01 mL, Route: SUB-Q, Drug form: SOLN, TID-Before Meals, Dosing Weight 91.818, kg, PRN Blood Glucose Results, Start date: 12/30/16 5:43:00 CDT, Duratio n: 30 day, Stop date: 01/29/17 5:42:00 CDT Notes: Roll in palms of hands gently; Do not shake vigorously. (Same as: NovoLO G)"single patient use only"WASTE: F/P - Black; E - Municipal Trash Bin Stable f or 28 days at room temperature.Expires in days from Date Start Date: 12/30/16 Stop Date: 01/05/17 Status: Discontinued insulin aspart 2 unit, 0.02 mL, Route: SUB-Q, Drug form: SOLN, TID-Before Meals, Dosing Weight 91.818, kg, PRN Blood Glucose Results, Start date: 12/30/16 5:43:00 CDT, Duratio n: 30 day, Stop date: 01/29/17 5:42:00 CDT Notes: Roll in palms of hands gently; Do not shake vigorously. (Same as: NovoLO G)"single patient use only"WASTE: F/P - Black; E - Municipal Trash Bin Stable f or 28 days at room temperature.Expires in days from Date Start Date: 12/30/16 Stop Date: 01/05/17 Status: Discontinued insulin glargine 100 units/mL subcutaneous solution 0.3 unit/kg, SUB-Q, BID, 50 units sq bid, 0 Refill(s) Start Date: 12/30/16 Status: Ordered labetalol (ANES) Route: IV, Drug form: INJ, ONCE, Stop date: 01/03/17 10:48:00 CDT Start Date: 01/03/17 Stop Date: 01/03/17 Status: Completed labetalol (ANES) Route: IV, Drug form: INJ, ONCE, Stop date: 01/01/17 14:51:00 CDT Start Date: 01/01/17 Stop Date: 01/01/17 Status: Completed Lactated Ringers 1,000 mL 1,000 mL, Rate: 100 ml/hr, Infuse over: 10 hr, Route: IV, Dosing Weight 91.818 k g, Total Volume: 1,000, Start date: 01/01/17 15:30:00 CDT, Duration: 30 day, Sto p date: 01/31/17 15:29:00 CDT Start Date: 01/01/17 Stop Date: 01/05/17 Status: Discontinued Lactated Ringers Injection IV 1000 mL 1,000 mL, Rate: 25 ml/hr, Infuse over: 40 hr, Route: IV, Dosing Weight 91.818 kg , Total Volume: 1,000, Start date: 01/01/17 13:24:00 CDT, Duration: 30 day, Stop date: 01/31/17 13:23:00 CDT Start Date: 01/01/17 Stop Date: 01/01/17 Status: Discontinued Lactated Ringers Injection IV 1000 mL 1,000 mL, Rate: 25 ml/hr, Infuse over: 40 hr, Route: IV, Dosing Weight 91.818 kg , Total Volume: 1,000, Start date: 01/03/17 14:33:00 CDT, Duration: 30 day, Stop date: 02/02/17 14:32:00 CDT Start Date: 01/03/17 Stop Date: 01/03/17 Status: Discontinued levothyroxine 200 microgram, PO, Daily, 0 Refill(s) Start Date: 12/30/16 Status: Ordered levothyroxine 200 microgram, 1 tab, Route: PO, Drug form: TAB, [id number], Dosing Weight 91.818, k g, Start date: 12/31/16 6:30:00 CDT, Duration: 30 day, Stop date: 01/29/17 6:30: 00 CDT Notes: Take 1 hour before or 2 hours after meal; Enteral feeds may interefere wi th the absorption of this medication. (Same as: Levothroid) Start Date: 12/31/16 Stop Date: 01/05/17 Status: Discontinued losartan 50 mg oral tablet 50 mg=1 tab, PO, Daily, 0 Refill(s) Start Date: 12/30/16 Status: Ordered LR 1000 mL INJ (ANES) Route: IV, Total Volume: 1,000, Start date: 01/01/17 14:09:00 CDT, Stop date: 15:09:00 CDT Start Date: 01/01/17 Stop Date: 01/01/17 Status: Completed midazolam (ANES) Route: IV, Drug form: SOLN, ONCE, Stop date: 01/03/17 10:33:00 CDT Start Date: 01/03/17 Stop Date: 01/03/17 Status: Completed midazolam (ANES) Route: IV, Drug form: SOLN, ONCE, Stop date: 01/01/17 14:46:00 CDT Start Date: 01/01/17 Stop Date: 01/01/17 Status: Completed morphine Sulfate 2 mg, 1 mL, Route: IVP, Drug form: INJ, Q4H, Dosing Weight 91.818, kg, PRN Pain Score 7-10, Start date: 12/30/16 5:04:00 CDT, Duration: 30 day, Stop date: 01/29 5:03:00 CDT Notes: (Same as:MORPhine Sulfate) Start Date: 12/30/16 Stop Date: 12/30/16 Status: Discontinued morphine Sulfate 2 mg, 1 mL, Route: IVP, Drug form: INJ, Q4H, Dosing Weight 91.818, kg, PRN Pain Score 7-10, Start date: 12/30/16 5:41:00 CDT, Duration: 30 day, Stop date: 01/29 5:40:00 CDT Notes: (Same as:MORPhine Sulfate) Start Date: 12/30/16 Stop Date: 01/01/17 Status: Discontinued NexIUM 40 mg oral delayed release capsule 40 mg=1 cap, PO, Daily, 0 Refill(s) Start Date: 12/30/16 Stop Date: 12/30/16 Status: Discontinued niacin 500 mg, PO, Daily, 0 Refill(s) Start Date: 12/30/16 Status: Ordered ondansetron 4 mg, 2 mL, Route: IVP, Drug form: INJ, Q6H, Dosing Weight 91.818, kg, PRN Nause a & Vomiting, Start date: 12/30/16 5:41:00 CDT, Duration: 30 day, Stop date: 01/29/17 5:40:00 CDT Notes: (Same as: Parvin) MEDICATION WASTE Product Size: 4 mgProduct Was july: ___ mg Start Date: 12/30/16 Stop Date: 01/05/17 Status: Discontinued ondansetron (ANES) Route: IV, Drug form: INJ, ONCE, Stop date: 01/03/17 10:43:00 CDT Start Date: 01/03/17 Stop Date: 01/03/17 Status: Completed ondansetron (ANES) Route: IV, Drug form: INJ, ONCE, Stop date: 01/01/17 14:46:00 CDT Start Date: 01/01/17 Stop Date: 01/01/17 Status: Completed Plavix 75 mg, 1 tab, Route: PO, Drug form: TAB, Daily, Dosing Weight 91.818, kg, Start date: 01/02/17 9:00:00 CDT, Duration: 30 day, Stop date: 01/31/17 9:00:00 CDT Notes: (Same As: Plavix) Start Date: 01/02/17 Stop Date: 01/05/17 Status: Discontinued pneumococcal 13-valent vaccine 0.5 mL, Route: IM, Drug Form: INJ, ONCE, Start date: 12/31/16 10:09:00 CDT, Stop date: 12/31/16 10:09:00 CDT Notes: Shake well prior to use (Same as: Prevnar 13) Start Date: 12/31/16 Stop Date: 12/31/16 Status: Deleted pneumococcal 13-valent vaccine 0.5 mL, Route: IM, Drug Form: INJ, Daily, Start date: 12/30/16 9:00:00 CDT, Dura tion: 1 doses or times, Stop date: 12/30/16 9:00:00 CDT Notes: Shake well prior to use (Same as: Ely ) Start Date: 12/30/16 Stop Date: 12/31/16 Status: Deleted pneumococcal 13-valent vaccine 0.5 mL, Route: IM, Drug Form: INJ, Daily, Start date: 12/31/16 12:00:00 CDT, Sto p date: 12/31/16 14:00:00 CDT Notes: Shake well prior to use (Same as: Ely ) Start Date: 12/31/16 Stop Date: 12/31/16 Status: Completed potassium gluconate 595 mg oral tablet 595 mg po oral daily, 0 Refill(s) Start Date: 12/30/16 Status: Ordered pregabalin 150 mg, 3 cap, Route: PO, Drug form: CAP, BID, Dosing Weight 91.818, kg, Start d ate: 12/31/16 9:00:00 CDT, Stop date: 01/29/17 17:00:00 CDT Notes: Same as Lyrica Start Date: 12/31/16 Stop Date: 01/05/17 Status: Discontinued pregabalin 75 mg oral capsule 75 mg=1 cap, PO, BID, 0 Refill(s) Start Date: 12/30/16 Status: Ordered Saline Flush 0.9% 10 ml, Route: IVP, Drug Form: INJ, Dosing Weight 91.818, kg, PRN, PRN Line Flush , Start date: 12/30/16 5:41:00 CDT, Duration: 30 day, Stop date: 01/29/17 5:40:0 0 CDT Notes: (Same as: BD Posiflush) Start Date: 12/30/16 Stop Date: 01/05/17 Status: Discontinued sodium chloride 0.9% 1000 ml INJ (ANES) Route: IV, Total Volume: 1,000, Start date: 01/03/17 9:55:00 CDT, Stop date: 10:55:00 CDT Start Date: 01/03/17 Stop Date: 01/03/17 Status: Completed sodium chloride 0.9% 1000 ml INJ 1,000 mL 1,000 mL, Rate: 125 ml/hr, Infuse over: 8 hr, Route: IV, Dosing Weight 91.818 kg , Total Volume: 1,000, Start date: 12/30/16 5:03:00 CDT, Duration: 30 day, Stop date: 01/29/17 5:02:00 CDT Start Date: 12/30/16 Stop Date: 12/30/16 Status: Discontinued sodium chloride 0.9% 1000 ml INJ 1,000 mL 1,000 mL, Rate: 100 ml/hr, Infuse over: 10 hr, Route: IV, Dosing Weight 91.818 k g, Total Volume: 1,000, Start date: 01/01/17 15:30:00 CDT, Duration: 30 day, Sto p date: 01/31/17 15:29:00 CDT Start Date: 01/01/17 Stop Date: 01/05/17 Status: Discontinued sodium chloride 0.9% 1000 ml INJ 1,000 mL 1,000 mL, Rate: 100 ml/hr, Infuse over: 10 hr, Route: IV, Dosing Weight 91.818 k g, Total Volume: 1,000, Start date: 12/31/16 17:52:00 CDT, Duration: 30 day, Sto p date: 01/30/17 17:51:00 CDT Start Date: 12/31/16 Stop Date: 01/01/17 Status: Discontinued sodium chloride 0.9% 1000 ml INJ 1,000 mL 1,000 mL, Rate: 75 ml/hr, Infuse over: 13.3 hr, Route: IV, Dosing Weight 91.818 kg, Total Volume: 1,000, Start date: 12/30/16 5:41:00 CDT, Duration: 30 day, Sto p date: 01/29/17 5:40:00 CDT Start Date: 12/30/16 Stop Date: 01/01/17 Status: Discontinued Tylenol with Codeine #3 oral tablet 1 tab, PO, Q6H, PRN Pain, # 25 tab, 0 Refill(s) Start Date: 01/05/17 Status: Ordered vancomycin 1.25 gm, 250 mL, Route: IVPB, Drug form: INJ, [id number], Start date: 01/01/17 6:00 :00 CDT, Duration: 30 day, Stop date: 01/30/17 18:00:00 CDT, ABX Indication: Bon e/Joint Infection Notes: TIME CRITICAL MEDICATIONSame as: Vancocin-NS (premixed)Infusion rate< 1000 mg: infuse over 1 [id number] - 1500 mg: infuse over 1.5 [id number] - 2000 mg: infuse over 2 hours> 2001 mg: infuse over 2.5 hours Start Date: 01/01/17 Stop Date: 01/04/17 Status: Discontinued vancomycin + sodium chloride 0.9% INJ 250 mL 1,000 mg, Route: IVPB, [id number], Dosing Weight 91.818, kg, Start date: 12/30/16 6 :00:00 CDT, Duration: 7 day, Stop date: 01/05/17 18:00:00 CDT, ABX Indication: S kin/Soft Tissue Infection Notes: TIME CRITICAL MEDICATION(Same As: Vancocin)Infusion rate< 1000 mg: infuse over 1 [id number] - 1500 mg: infuse over 1.5 [id number] - 2000 mg: infuse over 2 hours> 2001 mg: infuse over 2.5 hours MEDICATION WASTE Product Size: 1000 mgProduct Wasted: ___ mg Start Date: 12/30/16 Stop Date: 12/31/16 Status: Discontinued Vitamin B Complex oral tablet 1 tab, PO, Daily, 0 Refill(s) Start Date: 12/30/16 Status: Ordered Zosyn + sodium chloride 0.9% INJ 100 mL 3.375 gm, Route: IVPB, [id number], Dosing Weight 91.818, kg, CrCl >=20 ml/min infuse over 4 hours, Start date: 12/30/16 6:00:00 CDT, Duration: 7 day, Stop date: 01/05/17 22:00:00 CDT, ABX Indication: Skin/Soft Tissue Infection Notes: (Same as: Zosyn)Dosing based on Piperacillin component MEDICATION WA LING Product Size: 3375 mgProduct Wasted: ___ mg Start Date: 12/30/16 Stop Date: 01/04/17 Status: Discontinued Results BLOOD BANK RESULTS 1 2 3 Most recent to oldest [Reference Range]: O POS *Unknown* (12/31/16 6:51 PM) ABO/Rh Negative (12/31/16 6:51 PM) Antibody Scrn ELECTROLYTES 1 2 3 Most recent to oldest [Reference Range]: 135 mEq/L (01/04/17 11:28 AM) 134 mEq/L *LOW* (01/02/17 4:12 AM) 135 mEq/L (01/01/17 6:31 PM) Sodium Lvl [135-145 mEq/L] 3.8 mEq/L (01/04/17 11:28 AM) 3.9 mEq/L (01/02/17 4:12 AM) 4.0 mEq/L (01/01/17 6:31 PM) Potassium Lvl [3.5-5.1 mEq/L] 102 mEq/L (01/04/17 11:28 AM) 100 mEq/L (01/02/17 4:12 AM) 101 mEq/L (01/01/17 6:31 PM) Chloride Lvl [95-109 mEq/L] 27 mEq/L (01/04/17 11:28 AM) 26 mEq/L (01/02/17 4:12 AM) 27 mEq/L (01/01/17 6:31 PM) CO2 [24-32 mEq/L] 9.8 mEq/L *LOW* (01/04/17 11:28 AM) 11.9 mEq/L (01/02/17 4:12 AM) 11.0 mEq/L (01/01/17 6:31 PM) AGAP [10.0-20.0 mEq/L] CHEM PANEL 1 2 3 Most recent to oldest [Reference Range]: 0.67 mg/dL (01/04/17 11:28 AM) 0.67 mg/dL (01/02/17 4:12 AM) 0.64 mg/dL (01/01/17 6:31 PM) Creatinine Lvl [0.50-1.40 mg/dL] 92 mL/min/1.73m2 1 *NA* (01/04/17 11:28 AM) 92 mL/min/1.73m2 2 *NA* (01/02/17 4:12 AM) 93 mL/min/1.73m2 3 *NA* (01/01/17 6:31 PM) eGFR 7 mg/dL (01/04/17 11:28 AM) 7 mg/dL (01/02/17 4:12 AM) 6 mg/dL *LOW* (01/01/17 6:31 PM) BUN [7-22 mg/dL] 17 (12/31/16 4:20 AM) B/C Ratio [6-25] 215 mg/dL *HI* (01/04/17 11:28 AM) 134 mg/dL *HI* (01/02/17 4:12 AM) 82 mg/dL (01/01/17 6:31 PM) Glucose Lvl [70-99 mg/dL] 6.6 g/dL (12/31/16 4:20 AM) Total Protein [6.4-8.4 g/dL] 2.0 g/dL *LOW* (12/31/16 4:20 AM) Albumin Lvl [3.5-5.0 g/dL] 4.6 g/dL *HI* (12/31/16 4:20 AM) Globulin [2.7-4.2 g/dL] 0.4 *LOW* (12/31/16 4:20 AM) A/G Ratio [0.7-1.6] 8.0 mg/dL *LOW* (01/04/17 11:28 AM) 8.0 mg/dL *LOW* (01/02/17 4:12 AM) 8.8 mg/dL (01/01/17 6:31 PM) Calcium Lvl [8.5-10.5 mg/dL] 3.4 mg/dL (12/31/16 4:20 AM) Phosphorus [2.5-4.5 mg/dL] 1.9 mg/dL (12/31/16 4:20 AM) Magnesium Lvl [1.8-2.4 mg/dL] 23 unit/L (12/31/16 4:20 AM) ALT [0-65 unit/L] 23 unit/L (12/31/16 4:20 AM) AST [0-37 unit/L] 290 unit/L *HI* (12/31/16 4:20 AM) Alk Phos [39-136 unit/L] 0.6 mg/dL (12/31/16 4:20 AM) Bili Total [0.2-1.3 mg/dL] 1.0 mMol/L (6/12/17 7:45 AM) Lactic Acid Lvl [0.5-2.2 mMol/L] 1Result Comment: The eGFR is calculated using the [...] from the National Kidney Disease Education Program ( NKDEP) which additionally recommends that when the eGFR is used in patients with extremes of body mass index for purposes of drug dosing, the eGFR should be mul tiplied by the estimated BMI. 2Result Comment: The eGFR is calculated using the [...] from the National Kidney Disease Education Program ( NKDEP) which additionally recommends that when the eGFR is used in patients with extremes of body mass index for purposes of drug dosing, the eGFR should be mul tiplied by the estimated BMI. 3Result Comment: The eGFR is calculated using the [...] from the National Kidney Disease Education Program ( NKDEP) which additionally recommends that when the eGFR is used in patients with extremes of body mass index for purposes of drug dosing, the eGFR should be mul tiplied by the estimated BMI. SPECIAL CHEMISTRY 1 2 3 Most recent to oldest [Reference Range]: 9.1 % *HI* (12/31/16 4:20 AM) Hgb A1C [<=5.6 %] TOXICOLOGY 1 2 3 Most recent to oldest [Reference Range]: 0 *NA* (01/02/17 4:57 PM) 0 *NA* (12/31/16 5:25 PM) Vanco Tr TND 19.3 ug/ml *NA* (01/02/17 4:57 PM) 12.5 ug/ml *NA* (12/31/16 5:25 PM) Vanco Tr HEMATOLOGY 1 2 3 Most recent to oldest [Reference Range]: 8.9 K/CMM (01/05/17 6:55 AM) 9.2 K/CMM (01/04/17 11:28 AM) 11.9 K/CMM *HI* (01/02/17 4:12 AM) WBC [3.7-10.4 K/CMM] 2.62 M/CMM *LOW* (01/05/17 6:55 AM) 2.48 M/CMM *LOW* (01/04/17 11:28 AM) 2.73 M/CMM *LOW* (01/02/17 4:12 AM) RBC [4.20-5.40 M/CMM] 8.1 g/dL *LOW* (01/05/17 6:55 AM) 7.5 g/dL *LOW* (01/04/17 11:28 AM) 8.3 g/dL *LOW* (01/02/17 4:12 AM) Hgb [12.0-16.0 g/dL] 23.8 % *LOW* (01/05/17 6:55 AM) 22.2 % *LOW* (01/04/17 11:28 AM) 24.6 % *LOW* (01/02/17 4:12 AM) Hct [36.0-48.0 %] 90.6 fL (01/05/17 6:55 AM) 89.5 fL (01/04/17 11:28 AM) 90.3 fL (01/02/17 4:12 AM) MCV [80.0-98.0 fL] 30.9 pg (01/05/17 6:55 AM) 30.2 pg (01/04/17 11:28 AM) 30.4 pg (01/02/17 4:12 AM) MCH [27.0-31.0 pg] 34.1 g/dL (01/05/17 6:55 AM) 33.8 g/dL (01/04/17 11:28 AM) 33.7 g/dL (01/02/17 4:12 AM) MCHC [32.0-36.0 g/dL] 13.1 % (01/05/17 6:55 AM) 13.3 % (01/04/17 11:28 AM) 12.9 % (01/02/17 4:12 AM) RDW [11.5-14.5 %] 290 K/CMM (01/05/17 6:55 AM) 256 K/CMM (01/04/17 11:28 AM) 266 K/CMM (01/02/17 4:12 AM) Platelet [133-450 K/CMM] 7.6 fL (01/05/17 6:55 AM) 7.0 fL *LOW* (01/04/17 11:28 AM) 7.4 fL (01/02/17 4:12 AM) MPV [7.4-10.4 fL] 74.3 % (01/02/17 4:12 AM) 71.0 % (12/31/16 5:25 PM) 70.6 % (12/31/16 4:20 AM) Segs [45.0-75.0 %] 16.3 % *LOW* (01/02/17 4:12 AM) 18.8 % *LOW* (12/31/16 5:25 PM) 18.0 % *LOW* (12/31/16 4:20 AM) Lymphocytes [20.0-40.0 %] 7.5 % (01/02/17 4:12 AM) 8.0 % (12/31/16 5:25 PM) 8.5 % (12/31/16 4:20 AM) Monocytes [2.0-12.0 %] 0.6 % (01/02/17 4:12 AM) 1.5 % (12/31/16 5:25 PM) 2.0 % (12/31/16 4:20 AM) Eosinophils [0.0-4.0 %] 1.3 % *HI* (01/02/17 4:12 AM) 0.7 % (12/31/16 5:25 PM) 0.9 % (12/31/16 4:20 AM) Basophils [0.0-1.0 %] 8.8 K/CMM *HI* (01/02/17 4:12 AM) 8.0 K/CMM (12/31/16 5:25 PM) 6.9 K/CMM (12/31/16 4:20 AM) Segs-Bands # [1.5-8.1 K/CMM] 1.9 K/CMM (01/02/17 4:12 AM) 2.1 K/CMM (12/31/16 5:25 PM) 1.7 K/CMM (12/31/16 4:20 AM) Lymphocytes # [1.0-5.5 K/CMM] 0.9 K/CMM *HI* (01/02/17 4:12 AM) 0.9 K/CMM *HI* (12/31/16 5:25 PM) 0.8 K/CMM (12/31/16 4:20 AM) Monocytes # [0.0-0.8 K/CMM] 0.1 K/CMM (01/02/17 4:12 AM) 0.2 K/CMM (12/31/16 5:25 PM) 0.2 K/CMM (12/31/16 4:20 AM) Eosinophils # [0.0-0.5 K/CMM] 0.2 K/CMM (01/02/17 4:12 AM) 0.1 K/CMM (12/31/16 5:25 PM) 0.1 K/CMM (12/31/16 4:20 AM) Basophils # [0.0-0.2 K/CMM] 14.8 seconds *HI* (12/31/16 6:51 PM) 15.7 seconds *HI* (12/31/16 4:20 AM) PT [12.0-14.7 seconds] 1.14 (12/31/16 6:51 PM) 1.22 *HI* (12/31/16 4:20 AM) INR [0.85-1.17] 45.9 seconds *HI* (12/31/16 6:51 PM) 44.6 seconds *HI* (12/31/16 4:20 AM) PTT [22.9-35.8 seconds] Immunizations Given and Recorded Vaccine Date Status Refusal Reason pneumococcal 13-valent vaccine 12/31/16 Given Procedures Procedure Date Related Diagnosis Body Site Cataract surgery Social History Social History Type Response Smoking Status Never smoker; Ready to change: No; Concerns about tobacco use in household: No; Exposure to Tobacco Smoke None; Cigarette Smoking Last 365 Days No; Reg Smoking Cessation Counseling No Assessment and Plan Extracted from: Title: Discharge Summary * Author: Sha Carcamo MD Date: 01/05/17 Discharge Information Disposition to home Condition stable Medications: See med reconciliation form Diet diabetic Discharge Plan Follow-up with podiatry, ID and PCP in 1 week In evaluating worsening symptoms patient was a come back to the ED for further evaluation Discharge summary took greater than 35 minutes Extracted from: Title: Clinical Document Author: Sha Carcamo MD Date: 01/04/17 Progress Note SUBJECTIVE: Patient is doing much better today with no other issues. Likely discharge home tomorrow. Patient seen and evaluated at bedside. No overnight events. Denies chest pain, nausea, vomiting, diarrhea, headache, lightheadness, abdomen pain or dizziness. OBJECTIVE: VitalsTmp(F)[id number] 01/04 19:[id number]--- 01/04 16:2897.241418/105362--- 01/04 12:2698.797558/[id number]--- 01/04 07:061270094/137487--- 01/04 04:4597.671355/739282--- 24 Hr Tmax: 98.8F (37.11c) at 01/04 00:30Vital Signs are the last 5 in the past 48 hours. I&ORecordInOutBal 1724hr Tot 200 0 200 1624hr Tot 1958 5 1952 Labs (Last four charted values) WBC 9.2(MAMIE 17)H 11.9(MAMIE 15)H 12.9(MAMIE 14)H 11.2(MAMIE 13) Hgb L 7.5(MAMIE 17)L 8.3(MAMIE 15)L 8.9(MAMIE 14)L 9.2(MAMIE 13) Hct L 22.2(MAMIE 17)L 24.6(MAMIE 15)L 26.2(MAMIE 14)L 27.8(MAMIE 13) Plt 256(MAMIE 17)266(MAMIE 15)275(MAMIE 14)280(MAMIE 13) Na 135(MAMIE 17)L 134(MAMIE 15)135(MAMIE 14)L 133(MAMIE 13) K 3.8(MAMIE 17)3.9(MAMIE 15)4.0(MAMIE 14)4.2(MAMIE 13) CO2 27(MAMIE 17)26(MAMIE 15)27(MAMIE 14)27(MAMIE 13) Cl 102(MAMIE 17)100(MAMIE 15)101(MAMIE 14)100(MAMIE 13) Cr 0.67(MAMIE 17)0.67(MAMIE 15)0.64(MAMIE 14)0.80(MAMIE 13) BUN 7(MAMIE 17)7(MAMIE 15)L 6(MAMIE 14)9(MAMIE 13) Glucose Random H 215(MAMIE 17)H 134(MAMIE 15)82(MAMIE 14)93(MAMIE 13) Mg 1.9(MAMIE 13) Phos 3.4(MAMIE 13) Ca L 8.0(MAMIE 17)L 8.0(MAMIE 15)8.8(MAMIE 14)L 8.3(MAMIE 13) PT H 14.8(MAMIE 13)H 15.7(MAMIE 13) INR 1.14(MAMIE 13)H 1.22(MAMIE 13) PTT H 45.9(MAMIE 13)H 44.6(MAMIE 13) Medications (31) Active Scheduled: (11) Please bring pt's own med amitiza (lubiprostone) to pharm reminder, JOSELITO, QSHIFT RN-Do not give Vanc till trough drawn01/02/17@17:30 Attn:DIDIER AsencioC, ONCE amoxicillin-clavulanate 875-125 mg TAB 1 tab, [...] 1. Left big toe gangrene/left foot cellulitis/diabetic foot podiatry, vascular surgery and ID consulted, IV antibiotics, [...] tomorrow, monitor hemoglobin level 2. Type 2 diabetes insulin sliding scale, Accu-Cheks, A1c: 9.1 3. Hypertension stable, continue same home medications 4. Prophylaxis: Lovenox, Pepcid 5. FEN: IVFs, diabetic diet 6. PT/OT- eval and treat 7. Peripheral neuropathy continue with Lyrica 8. Anemia likely secondary chronic repeat hemoglobin in the morning if low transfuse 1 unit and discharged home, less likely from surgery as hemoglobin was stable even prior to surgery. Deposition: Inpatient, ID, vascular surgery and podiatry consulted Plan to discharge home tomorrow
--- OUTSIDE RECORDS SUMMARY | 2019-01-15 16:14 | XMS REPORT | Summary of Care ---
Author Author [facility] Organization [facility] Address Unknown Phone Unavailable Encounter HQ Liliam(JO) [id number] Date(s): 07/02/15 - 07/02/15 [facility] [address] [place] [address]- Discharge Diagnosis: Sprain of ligaments of cervical spine, initial encounter Discharge Diagnosis: Sprain of ligaments of lumbar spine, initial encounter Discharge Diagnosis: Fall on same level from slipping, tripping and stumbling wi th subsequent striking against furniture, initial encounter Discharge Diagnosis: Concussion without loss of consciousness, initial encounter Discharge Disposition: Home Attending Physician: Finesse Gallego MD Vital Signs 1 2 3 Most recent to oldest [Reference Range]: 170.18 cm (07/02/15 5:32 AM) Height 98.9 DegF (07/02/15 5:32 AM) Temperature Oral [96.4-99.1 DegF] 163/89 mmHg *HI* (07/02/15 7:52 AM) 156/80 mmHg *HI* (07/02/15 6:52 AM) 213/103 mmHg *HI* (07/02/15 5:32 AM) Blood Pressure [90-140/60-90 mmHg] 18 BRMIN (07/02/15 7:52 AM) 18 BRMIN (07/02/15 6:52 AM) 20 BRMIN (07/02/15 5:32 AM) Respiratory Rate [14-20 BRMIN] 77 bpm (07/02/15 7:52 AM) 71 bpm (07/02/15 6:52 AM) 75 bpm (07/02/15 5:32 AM) Peripheral Pulse Rate [60-100 bpm] 100 kg (07/02/15 5:32 AM) Weight 34.53 m2 (07/02/15 5:32 AM) Body Mass Index Problem List Condition Effective Dates Status Health Status Informant Diabetes(Confirmed) Resolved Hypertension(Confirm Resolved ed) Neuropathy(Confirmed Resolved ) Sciatica(Confirmed) Resolved Allergies, Adverse Reactions, Alerts Substance Reaction Severity Status Actos Active Medications acetaminophen 650 mg, Route: PO, Drug form: TAB, ONCE, Dosing Weight 100, kg, Priority: STAT, Start date: 07/02/15 6:06:00, Stop date: 07/02/15 6:06:00 Start Date: 07/02/15 Stop Date: 07/02/15 Status: Completed Tylenol 325 mg oral tablet 650 mg=2 tab, PO, Q4H, PRN Pain, X 3 day, # 36 tab, 0 Refill(s) Start Date: 07/02/15 Stop Date: 07/05/15 Status: Ordered Zofran ODT 4 mg, Route: PO, Drug form: TABDIS, ONCE, Dosing Weight 100, kg, Priority: STAT, Start date: 07/02/15 6:06:00, Stop date: 07/02/15 6:06:00 Start Date: 07/02/15 Stop Date: 07/02/15 Status: Completed Results No data available for this section Immunizations No data available for this section Procedures No data available for this section Social History Social History Type Response Smoking Status Never smoker; Ready to change: No; Concerns about tobacco use in household: No; Exposure to Tobacco Smoke None; Cigarette Smoking Last 365 Days No; Reg Smoking Cessation Counseling No Assessment and Plan No data available for this section
--- OUTSIDE RECORDS SUMMARY | 2019-01-15 16:14 | XMS REPORT | Summary of Care ---
Author Organization Unknown Address Unknown Phone Unavailable Encounter JING Ricketts(JO) [id number] Date(s): 07/03/14 - 07/03/14 [facility] [address] [place], [place] [id number] [place] [address] Discharge Diagnosis: Hyperglycemia Discharge Diagnosis: Acute UTI Discharge Disposition: Home Physician Attending: Finesse Gallego MD Reason for Visit NEUROPOTHY Vital Signs Most recent to 1 2 oldest [Reference Range]: Height 170.18 cm (07/03/14 11:43 AM) Temperature Oral 98.2 DegF 97.7 DegF [96.4-99.1 DegF] (07/03/14 4:29 PM) (07/03/14 11:43 AM) Systolic Blood 132 mmHg 150 mmHg Pressure [90-140 (07/03/14 4:29 PM) *HI* mmHg] (07/03/14 11:43 AM) Diastolic Blood 75 mmHg 58 mmHg Pressure [60-90 (07/03/14 4:29 PM) *LOW* mmHg] (07/03/14 11:43 AM) Respiratory Rate 18 BRMIN 20 BRMIN [14-20 BRMIN] (07/03/14 4:29 PM) (07/03/14 11:43 AM) Peripheral Pulse 75 bpm 78 bpm Rate [60-100 bpm] (07/03/14 4:29 PM) (07/03/14 11:43 AM) Weight 100 kg (07/03/14 11:43 AM) Body Mass Index 34.53 m2 (07/03/14 11:43 AM) Problem List No data available for this section Allergies, Adverse Reactions, Alerts Substance Reaction Severity Status Actos Active Medications Macrobid 100 mg oral capsule 100 mg=1 cap, PO, BID, # 14 cap, 0 Refill(s) Start Date: 07/03/14 Stop Date: 07/10/14 Status: Ordered NovoLIN 70/30 See Special Instructions, SUB-Q, BID-Before Meals, Take as previously prescribed , # 10 vial, 0 Refill(s) Special Instructions: Take as previously prescribed Start Date: 07/03/14 Status: Ordered Results ELECTROLYTES Most recent to 1 oldest [Reference Range]: Sodium Lvl [135-145 133 mEq/L mEq/L] *LOW* (07/03/14 2:39 PM) Potassium Lvl 3.9 mEq/L [3.5-5.1 mEq/L] (07/03/14 2:39 PM) Chloride Lvl [95-109 97 mEq/L mEq/L] (07/03/14 2:39 PM) CO2 [24-32 mEq/L] 27 mEq/L (07/03/14 2:39 PM) AGAP [10.0-20.0 12.9 mEq/L mEq/L] (07/03/14 2:39 PM) CHEM PANEL Most recent to 1 oldest [Reference Range]: Creatinine Lvl 1.0 mg/dL [0.5-1.4 mg/dL] (07/03/14 2:39 PM) eGFR 60 mL/min/1.73m2 1 *NA* (07/03/14 2:39 PM) BUN [7-22 mg/dL] 12 mg/dL (07/03/14 2:39 PM) B/C Ratio [6-25] 12 (07/03/14 2:39 PM) Glucose Lvl [70-99 304 mg/dL 2 mg/dL] *HI* (07/03/14 2:39 PM) Total Protein 7.8 g/dL [6.4-8.4 g/dL] (07/03/14 2:39 PM) Albumin Lvl [3.5-5.0 3.6 g/dL g/dL] (07/03/14 2:39 PM) Globulin [2.0-4.0 4.2 g/dL g/dL] *HI* (07/03/14 2:39 PM) A/G Ratio [0.7-1.6] 0.9 (07/03/14 2:39 PM) Calcium Lvl 9.0 mg/dL [8.5-10.5 mg/dL] (07/03/14 2:39 PM) Magnesium Lvl 1.8 mg/dL [1.8-2.4 mg/dL] (07/03/14 2:39 PM) ALT [0-65 unit/L] 97 unit/L *HI* (07/03/14 2:39 PM) AST [0-37 unit/L] 80 unit/L *HI* (07/03/14 2:39 PM) Alk Phos [39-136 147 unit/L unit/L] *HI* (07/03/14 2:39 PM) Bili Total [0.2-1.3 0.5 mg/dL mg/dL] (07/03/14 2:39 PM) 1Result Comment: The eGFR is calculated using [...] be mul tiplied by the estimated BMI. 2Interpretive Data: Adult reference range values reflect the clinical guidelines of the [place] [employer]. CARDIAC ENZYMES Most recent to 1 oldest [Reference Range]: Total CK [12-191 88 unit/L unit/L] (07/03/14 2:39 PM) CK MB [0.5-3.6 2.3 ng/mL ng/mL] (07/03/14 2:39 PM) CK MB Index 2.6 [0.0-2.5] *HI* (07/03/14 2:39 PM) Troponin-I 0.10 ng/mL [0.00-0.40 ng/mL] (07/03/14 2:39 PM) URINE AND STOOL Most recent to 1 oldest [Reference Range]: UA Turbidity [Clear] Slight *ABN* (07/03/14 2:59 PM) UA Color [Yellow] Yellow *NA* (07/03/14 2:59 PM) UA pH [5.0-8.0] 6.0 (07/03/14 2:59 PM) UA Spec Grav 1.020 [<=1.030] (07/03/14 2:59 PM) UA Glucose [Negative 500 mg/dL mg/dL] *ABN* (07/03/14 2:59 PM) UA Blood [Negative] Negative (07/03/14 2:59 PM) UA Ketones [Negative Negative mg/dL mg/dL] *NA* (07/03/14 2:59 PM) UA Protein [Negative Negative mg/dL mg/dL] (07/03/14 2:59 PM) UA Urobilinogen 2.0 mg/dL [0.1-1.0 mg/dL] *HI* (07/03/14 2:59 PM) UA Bili [Negative] Negative *NA* (07/03/14 2:59 PM) UA Leuk Est Moderate [Negative] *ABN* (07/03/14 2:59 PM) UA Nitrite Negative [Negative] (07/03/14 2:59 PM) UA WBC [0-5 /HPF] 7 /HPF *HI* (07/03/14 2:59 PM) UA RBC [0-2 /HPF] 4 /HPF *HI* (07/03/14 2:59 PM) UA Sq Epi [Few /LPF] Moderate /LPF *ABN* (07/03/14 2:59 PM) HEMATOLOGY Most recent to 1 oldest [Reference Range]: WBC [3.7-10.4 K/CMM] 9.8 K/CMM (07/03/14 2:39 PM) RBC [4.20-5.40 4.35 M/CMM M/CMM] (07/03/14 2:39 PM) Hgb [12.0-16.0 g/dL] 14.3 g/dL (07/03/14 2:39 PM) Hct [36.0-48.0 %] 40.8 % (07/03/14 2:39 PM) MCV [80.0-98.0 fL] 93.8 fL (07/03/14 2:39 PM) MCH [27.0-31.0 pg] 32.9 pg *HI* (07/03/14 2:39 PM) MCHC [32.0-36.0 35.1 g/dL g/dL] (07/03/14 2:39 PM) RDW [11.5-14.5 %] 13.2 % (07/03/14 2:39 PM) Platelet [133-450 221 K/CMM K/CMM] (07/03/14 2:39 PM) MPV [7.4-10.4 fL] 9.5 fL (07/03/14 2:39 PM) Segs [45.0-75.0 %] 59.1 % (07/03/14 2:39 PM) Lymphocytes 31.1 % [20.0-40.0 %] (07/03/14 2:39 PM) Monocytes [2.0-12.0 6.6 % %] (07/03/14 2:39 PM) Eosinophils [0.0-4.0 2.1 % %] (07/03/14 2:39 PM) Basophils [0.0-1.0 1.1 % %] *HI* (07/03/14 2:39 PM) Segs-Bands # 5.8 K/CMM [1.5-8.1 K/CMM] (07/03/14 2:39 PM) Lymphocytes # 3.1 K/CMM [1.0-5.5 K/CMM] (07/03/14 2:39 PM) Monocytes # [0.0-0.8 0.7 K/CMM K/CMM] (07/03/14 2:39 PM) Eosinophils # 0.2 K/CMM [0.0-0.5 K/CMM] (07/03/14 2:39 PM) Basophils # [0.0-0.2 0.1 K/CMM K/CMM] (07/03/14 2:39 PM) PT [12.0-14.7 12.7 seconds seconds] (07/03/14 2:39 PM) INR [0.85-1.17] 0.95 3 (07/03/14 2:39 PM) PTT [22.9-35.8 28.5 seconds 4 seconds] (07/03/14 2:39 PM) 3Interpretive Data: RECOMMENDED RANGES FOR PROTIME INR: 2.0-3.0 for most medical and surgical thromboembolic states. 2.5-3.5 for artificial heart valves and recurrent embolism. INR SHOULD BE USED ONLY FOR PATIENTS ON STABLE ANTICOAGULANT THERAPY. 4Interpretive Data: Heparin Therapeutic Range: 57 - 92 Seconds Medications Administered During Your Visit No data available for this section Immunizations No data available for this section Social History Social History Type Response Smoking Status Never smoker, Exposure to Tobacco Smoke None, Cigarette Smoking Last 365 Days No, Reg Smoking Cessation Counseling No
--- OUTSIDE RECORDS SUMMARY | 2019-01-15 16:14 | XMS REPORT | Summary of Care ---
Author Organization Unknown Address Unknown Phone Unavailable Encounter JING Ricketts(JO) [id number] Date(s): 07/03/14 - 07/03/14 [facility] [address] [place], [place] [id number] [place] [address] Discharge Diagnosis: Hyperglycemia Discharge Diagnosis: Acute UTI [...] values reflect the clinical guidelines of the [place] [employer]. CARDIAC ENZYMES Most recent to [...]
--- OUTSIDE RECORDS SUMMARY | 2019-01-15 16:14 | XMS REPORT | Summary of Care ---
Author Organization Unknown Address Unknown Phone Unavailable Encounter JING Ricketts(JO) [id number] Date(s): 07/03/14 - 07/03/14 [facility] [address] Discharge Diagnosis: Hyperglycemia Discharge Diagnosis: Acute UTI [...] values reflect the clinical guidelines of the [place] [employer]. CARDIAC ENZYMES Most recent to [...]
--- OUTSIDE RECORDS SUMMARY | 2019-01-15 16:15 | XMS REPORT ---
Author Author [facility] Address Unknown Phone Unavailable Care Team Providers Care Meter Maker Name Role Phone LAWRENCE SARABIA Unavailable Unavailable Problems This patient has no known problems. Allergies, Adverse Reactions, Alerts This patient has no known allergies or adverse reactions. Medications This patient has no known medications. Results Test Description Test Time Test Comments Text Results Atomic Results Result Comments MRI FOOT LEFT WO [place] [address] Patient Name: JE TIPTON MR #: [id number] : 1950 Age/Sex: 67/F Req #: [id number] [facility] Physician: LAWRENCE SARABIA MD Ordered by: INDIA REAL DPRadha Report #: [id number] Location: [facility] Room/Bed: [facility] Procedure: [id number] MRI/MRI FOOT LEFT WO Exam Date: 04/02/17 Exam Time: 1050 REPORT STATUS: Signed TECHNIQUE: Magnetic resonance imaging of the LEFT foot (forefoot) was performed WITHOUT injected contrast. HISTORY: Cellulitis, abscess, rule out osteomyelitis, status post left great toe amputation January 03 COMPARISON: Left foot radiographs April 02, 2017 DISCUSSION: Bone: Status post application of the first ray at the level of the distal metadiaphysis of the first metatarsal bone. Bone marrow edema of the residual first metatarsal diaphysis with decreased fatty marrow signal of the residual distal diaphysis. Erosion of the head of the second metatarsal bone. Diffuse edema extending from the proximal diaphysis to the residual distal portion with associated decreased fatty marrow signal of the distal diaphysis, metaphysis and residual head. Erosion and decreased fatty marrow signal of the proximal aspect of the second proximal phalanx with a positive the of associated bone marrow edema. Joints: No joint effusion. Mild scattered degenerative changes. Soft Tissues: Soft tissue defect involving the medial aspect of the forefoot, no associated drainable fluid collection. IMPRESSION: 1. Acute versus acute on chronic osteomyelitis involving the distal aspect of the residual second metatarsal bone. 2. Acute versus acute on chronic osteomyelitis involving the residual distal aspect of the first metatarsal bone. 3. Probable chronic osteomyelitis involving the second proximal phalanx. 4. No soft tissue abscess. Signed by: Dr. Latesha Paul M.D. on 04/02/2017 11:46 AM Dictated By: LATESHA PAUL DO 1146 Transcribed By: TIM on 04/02/17 1146 COPY TO: INDIA KAISER DPRadha FOOT LEFT COMPLETE [place] [address] Patient Name: JE TIPTON MR #: [id number] : 1950 Age/Sex: 67/F Req #: [id number] Adm Physician: LAWRENCE SARABIA MD Ordered by: ARTHUR TREVIÑO DPM Report #: [id number] Location: [facility] Room/Bed: [facility] Procedure: [id number] DX/FOOT LEFT COMPLETE Exam Date: 04/02/17 Exam Time: 0445 REPORT STATUS: Signed PROCEDURE: X-RAY LEFT FOOT, COMPLETE COMPARISON: None. INDICATIONS: OSTEOMYELITIS FINDINGS: Status post distal first metatarsal amputation. Erosion and destruction of the distal second metatarsal and proximal phalanx of the second digit with associated soft tissue swelling is compatible with osteomyelitis. Juxta- articular osteoporosis involving the third, fourth and fifth metatarsophalangeal articulations also present. Spurring of the calcaneus is noted. CONCLUSION: Evidence of osteomyelitis with erosion and destruction of the distal second metatarsal and proximal phalangeal articulation. Ender Teran D.O. Dictated by: Ender Teran D.O. on 04/02/2017 at 10:30 Electronically approved by: Ender Teran D.O. on 04/02/2017 at 10:30 Dictated By: ENDER TERAN DO 1030 Transcribed By: ARNAUD on 04/02/17 1030 COPY TO: ARTHUR TREVIÑO DPRadha CHEST XRAY LINE PLACEMENT [place] [address] Patient Name: JE TIPTON MR #: [id number] : 1950 Age/Sex: 67/F Req #: [id number] Adm Physician: LAWRENCE SARABIA MD Ordered by: OBED HARDIN MD Report #: [id number] Location: [facility] Room/Bed: [facility] Procedure: [id number] DX/CHEST XRAY LINE PLACEMENT Exam Date: Exam Time: REPORT STATUS: Signed EXAM: CHEST XRAY LINE PLACEMENT, AP 1 view DATE: 03/31/2017 10:06 PM Time stamp on exam: 2213 hours INDICATION: PICC placement COMPARISON: AP view of the chest March 31, 2017 at 2132 hours FINDINGS: LINES/TUBES: Interval readjustment of the left approach PICC, which now terminates at the expected location of the atriocaval junction. LUNGS: No consolidations or edema. PLEURA: No effusions or pneumothorax. HEART AND MEDIASTINUM: Normal size and contour. BONES AND SOFT TISSUES: No acute findings. IMPRESSION: Interval readjustment of the left approach PICC, which now terminates at the expected location of the atriocaval junction. Signed by: Dr. Ariel Leon M.D. on 03/31/2017 10:29 PM Dictated By: ARIEL LEON MD 28 Transcribed By: TIM on 03/31/172228 COPY TO: OBED HARDIN MD CHEST XRAY LINE PLACEMENT [place] [address] Patient Name: JE TIPTON MR #: [id number] : 1950 Age/Sex: 67/F Req #: [id number] Adm Physician: LAWRENCE SARABIA MD Ordered by: OBED HARDIN MD Report #: [id number] Location: [facility] Room/Bed: [facility] Procedure: [id number] DX/CHEST XRAY LINE PLACEMENT Exam Date: 03/31/17 Exam Time: 2139 REPORT STATUS: Signed EXAM: CHEST XRAY LINE PLACEMENT, AP 1 view DATE: 03/31/2017 9:31 PM Time stamp on exam: 2132 hours INDICATION: PICC placement COMPARISON: PA and lateral view of the chest December 29, 2016 FINDINGS: LINES/TUBES: Interval placement of left approach PICC. The tip terminates in expected location of the proximal azygos vein. LUNGS: No consolidations or edema. PLEURA: No effusions or pneumothorax. HEART AND MEDIASTINUM: Normal size and contour. BONES AND SOFT TISSUES: No acute findings. IMPRESSION: Interval placement of left approach PICC. The tip terminates in expected location of the proximal azygos vein. Signed by: Dr. Ariel Leon M.D. on 03/31/2017 10:14 PM Dictated By: ARIEL LEON MD 13 Transcribed By: TIM on 03/31/172213 COPY TO: OBED HARDIN MD
--- OUTSIDE RECORDS SUMMARY | 2019-01-15 16:15 | XMS REPORT | Summary of Care ---
Author Author [facility] Organization [facility] Address Unknown Phone Unavailable Encounter HQ Liliam(JO) [id number] Date(s): 11/09/16 - 11/09/16 [facility] [address] [place] [address]- [phone] Discharge Disposition: Left Without Being Seen Attending Physician: Mainor Wilson DO Vital Signs Most recent to 1 oldest [Reference Range]: Height 170.18 cm (11/09/16 1:04 AM) Temperature Oral 97.6 DegF [96.4-99.1 DegF] (11/09/16 1:04 AM) Blood Pressure 221/115 mmHg [90-140/60-90 mmHg] *HI* (11/09/16 1:04 AM) Respiratory Rate 20 BRMIN [14-20 BRMIN] (11/09/16 1:04 AM) Peripheral Pulse 89 bpm Rate [60-100 bpm] (11/09/16 1:04 AM) Weight 97.727 kg (11/09/16 1:04 AM) Body Mass Index 33.74 m2 (11/09/16 1:04 AM) Problem List Condition Effective Dates Status Health Status Informant Diabetes(Confirmed) Resolved Hypertension(Confirm Resolved ed) Neuropathy(Confirmed Resolved ) Sciatica(Confirmed) Resolved Allergies, Adverse Reactions, Alerts Substance Reaction Severity Status Actos Active Medications No data available for this section Results No data available for this section [...]
--- OUTSIDE RECORDS SUMMARY | 2019-01-15 16:15 | XMS REPORT | Summary of Care ---
Author Author [facility] Organization [facility] Address Unknown Phone Unavailable Encounter JING Ricketts(JO) [id number] Date(s): 07/03/15 - 07/03/15 [facility] [address] [place] [address]- Discharge Diagnosis: Fall (on)(from) incline, sequela Discharge Disposition: Home Attending Physician: Mariana Garcia MD Vital Signs Most recent to 1 2 oldest [Reference Range]: Height 170.18 cm (07/03/15 7:58 AM) Temperature Oral 98.2 DegF 98.2 DegF [96.4-99.1 DegF] (07/03/15 10:30 AM) (07/03/15 7:58 AM) Blood Pressure 132/85 mmHg 130/81 mmHg [90-140/60-90 mmHg] (07/03/15 10:30 AM) (07/03/15 7:58 AM) Respiratory Rate 17 BRMIN 18 BRMIN [14-20 BRMIN] (07/03/15 10:30 AM) (07/03/15 7:58 AM) Peripheral Pulse 66 bpm 65 bpm Rate [60-100 bpm] (07/03/15 10:30 AM) (07/03/15 7:58 AM) Weight 98.182 kg (07/03/15 7:58 AM) Body Mass Index 33.9 m2 (07/03/15 7:58 AM) Problem List Condition Effective Dates Status Health Status Informant Diabetes(Confirmed) Resolved Hypertension(Confirm Resolved ed) Neuropathy(Confirmed Resolved ) Sciatica(Confirmed) Resolved Allergies, Adverse Reactions, Alerts Substance Reaction Severity Status Actos Active Medications morphine Sulfate 4 mg, 2 mL, Route: IVP, Drug form: INJ, ONCE, Dosing Weight 98.182, kg, Priority : STAT, Start date: 07/03/15 8:11:00, Stop date: 07/03/15 8:11:00 Notes: (Same as:MORPhine Sulfate) Start Date: 07/03/15 Stop Date: 07/03/15 Status: Completed Ultram 50 mg oral tablet 1 tab, Route: PO, Drug form: TAB, ONCE, Dosing Weight 98.182, kg, Priority: STAT , Start date: 07/03/15 8:50:00, Stop date: 07/03/15 8:50:00 Start Date: 07/03/15 Stop Date: 07/03/15 Status: Completed Ultram 50 mg oral tablet 50 mg=1 tab, PO, Q4H, PRN pain, X 5 day, # 30 tab, 0 Refill(s) Start Date: 07/03/15 Stop Date: 07/08/15 Status: Ordered Zofran 4 mg, Route: IVP, Drug form: INJ, ONCE, Dosing Weight 98.182, kg, Priority: STAT , Start date: 07/03/15 8:51:00, Stop date: 07/03/15 8:51:00 Start Date: 07/03/15 Stop Date: 07/03/15 Status: Completed Zofran ODT 4 mg oral tablet, disintegrating 4 mg=1 tab, PO, BID, PRN Nausea and Vomiting, Dissolve tab under tongue, X 3 day , # 10 tab, 0 Refill(s) Start Date: 07/03/15 Stop Date: 07/06/15 Status: Ordered Results ELECTROLYTES Most recent to 1 oldest [Reference Range]: Sodium Lvl [135-145 126 mEq/L mEq/L] *LOW* (07/03/15 8:31 AM) Potassium Lvl 4.1 mEq/L [3.5-5.1 mEq/L] (07/03/15 8:31 AM) Chloride Lvl [95-109 92 mEq/L mEq/L] *LOW* (07/03/15 8:31 AM) CO2 [24-32 mEq/L] 26 mEq/L (07/03/15 8:31 AM) AGAP [10.0-20.0 12.1 mEq/L mEq/L] (07/03/15 8:31 AM) CHEM PANEL Most recent to 1 oldest [Reference Range]: Creatinine Lvl 0.95 mg/dL [0.50-1.40 mg/dL] (07/03/15 8:31 AM) eGFR 63 mL/min/1.73m2 1 *NA* (07/03/15 8:31 AM) BUN [7-22 mg/dL] 13 mg/dL (07/03/15 8:31 AM) B/C Ratio [6-25] 14 (07/03/15 8:31 AM) Glucose Lvl [70-99 315 mg/dL mg/dL] *HI* (07/03/15 8:31 AM) Total Protein 7.4 g/dL [6.4-8.4 g/dL] (07/03/15 8:31 AM) Albumin Lvl [3.5-5.0 3.4 g/dL g/dL] *LOW* (07/03/15 8:31 AM) Globulin [2.0-4.0 4.0 g/dL g/dL] (07/03/15 8:31 AM) A/G Ratio [0.7-1.6] 0.8 (07/03/15 8:31 AM) Calcium Lvl 8.7 mg/dL [8.5-10.5 mg/dL] (07/03/15 8:31 AM) ALT [0-65 unit/L] 34 unit/L (07/03/15 8:31 AM) AST [0-37 unit/L] 18 unit/L (07/03/15 8:31 AM) Alk Phos [39-136 102 unit/L unit/L] (07/03/15 8:31 AM) Bili Total [0.2-1.3 0.7 mg/dL mg/dL] (07/03/15 8:31 AM) 1Result Comment: The eGFR is calculated using [...] be mul tiplied by the estimated BMI. URINE AND STOOL Most recent to 1 oldest [Reference Range]: UA Turbidity [Clear] Clear (07/03/15 8:31 AM) UA Color Ltyellow *NA* (07/03/15 8:31 AM) UA pH [5.0-8.0] 6.0 (07/03/15 8:31 AM) UA Spec Grav 1.013 [<=1.030] (07/03/15 8:31 AM) UA Glucose [Negative 500 mg/dL mg/dL] *ABN* (07/03/15 8:31 AM) UA Blood [Negative] Negative (07/03/15 8:31 AM) UA Ketones [Negative Negative mg/dL mg/dL] *NA* (07/03/15 8:31 AM) UA Protein [Negative Negative mg/dL mg/dL] (07/03/15 8:31 AM) UA Urobilinogen <=1.0 mg/dL [0.1-1.0 mg/dL] *NA* (07/03/15 8:31 AM) UA Bili [Negative] Negative *NA* (07/03/15 8:31 AM) UA Leuk Est Negative [Negative] (07/03/15 8:31 AM) UA Nitrite Negative [Negative] (07/03/15 8:31 AM) UA WBC [0-5 /HPF] 1 /HPF (07/03/15 8:31 AM) UA RBC [0-2 /HPF] 1 /HPF (07/03/15 8:31 AM) UA Sq Epi [Few /LPF] Occasional /LPF *NA* (07/03/15 8:31 AM) HEMATOLOGY Most recent to 1 oldest [Reference Range]: WBC [3.7-10.4 K/CMM] 8.5 K/CMM (07/03/15 8:31 AM) RBC [4.20-5.40 4.20 M/CMM M/CMM] (07/03/15 8:31 AM) Hgb [12.0-16.0 g/dL] 13.5 g/dL (07/03/15 8:31 AM) Hct [36.0-48.0 %] 39.6 % (07/03/15 8:31 AM) MCV [80.0-98.0 fL] 94.5 fL (07/03/15 8:31 AM) MCH [27.0-31.0 pg] 32.1 pg *HI* (07/03/15 831 AM) MCHC [32.0-36.0 33.9 g/dL g/dL] (07/03/15 8:31 AM) RDW [11.5-14.5 %] 12.6 % (07/03/15 8:31 AM) Platelet [133-450 191 K/CMM K/CMM] (07/03/15 8:31 AM) MPV [7.4-10.4 fL] 9.3 fL (07/03/15 8:31 AM) Segs [45.0-75.0 %] 72.4 % (07/03/15 8:31 AM) Lymphocytes 20.2 % [20.0-40.0 %] (07/03/15 8:31 AM) Monocytes [2.0-12.0 4.9 % %] (07/03/15 8:31 AM) Eosinophils [0.0-4.0 1.4 % %] (07/03/15 8:31 AM) Basophils [0.0-1.0 1.1 % %] *HI* (07/03/15 8:31 AM) Segs-Bands # 6.2 K/CMM [1.5-8.1 K/CMM] (07/03/15 8:31 AM) Lymphocytes # 1.7 K/CMM [1.0-5.5 K/CMM] (07/03/15 8:31 AM) Monocytes # [0.0-0.8 0.4 K/CMM K/CMM] (07/03/15 8:31 AM) Eosinophils # 0.1 K/CMM [0.0-0.5 K/CMM] (07/03/15 8:31 AM) Basophils # [0.0-0.2 0.1 K/CMM K/CMM] (07/03/15 8:31 AM) Immunizations No data available for this section [...]
--- OUTSIDE RECORDS SUMMARY | 2019-01-15 16:16 | XMS REPORT | Continuity of Care Document ---
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 TOE Active 12/30/2016 [facility] RASH Active 11/09/2016 [facility] Discharge Diagnosis: Fall (from) incline, sequela 07/03/2015 07/06/2015 [facility] Discharge Diagnosis: Sprain of ligaments of cervical spine, initial encounter 07/02/2015 07/05/2015 [facility] Discharge Diagnosis: Sprain of ligaments of lumbar spine, initial encounter 07/02/2015 07/05/2015 [facility] Discharge Diagnosis: Fall on same level from slipping, tripping and stumbling with subsequent striking against furniture, initial encounter 07/02/2015 07/05/2015 [facility] Discharge Diagnosis: Concussion without loss of consciousness, initial encounter 07/02/2015 07/05/2015 [facility] FALL Active 07/01/2015 [facility] Discharge Diagnosis: Hyperglycemia 07/03/2014 07/06/2014 [facility] Discharge Diagnosis: Acute UTI 07/03/2014 07/06/2014 [facility] NEUROPOTHY Active 07/03/2014 [facility] Diabetes Resolved Problem 01/08/2017 [facility] Hypertension Resolved Problem 01/08/2017 [facility] Neuropathy Resolved Problem 01/08/2017 [facility] Sciatica Resolved Problem 01/08/2017 [facility] 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 [facility] 719.41/ 719.46 Active [facility] GANGRENE AND NECROSIS OF LUNG Active [facility] Medications Medication Details Route Status Patient Instructions Ordering Provider Order Date Source Acetaminophen 300 MG / Codeine Phosphate 30 MG Oral Tablet [Tylenol with Codeine #3] 1 tab, PO, Q6H, PRN Pain, # 25 tab, 0 Refill(s) Active 01/05/2017 [facility] clopidogrel 75 mg oral tablet 75 mg=1 tab, PO, Daily, # 30 tab, 0 Refill(s) Active 01/05/2017 [facility] Amoxicillin 875 MG / Clavulanate 125 MG Oral Tablet [Augmentin 875-mg] 1 tab, PO, Q12H, # 14 tab, 0 Refill(s) Active 01/05/2017 [facility] Amoxicillin 875 MG / Clavulanate 125 MG Oral Tablet [Augmentin 875-mg] 1 tab, Route: PO, Drug Form: TAB, Dosing Weight 91.818, kg, Q12H, Start date: 01/04/17 21:00:00 CDT, Duration: 30 day, Stop date: 02/03/17 9:00:00 CDTNotes: With food. (Same as: Augmentin 875) No Longer Active 01/05/2017 [facility] Calcium Chloride 0.0014 MEQ/ML / Potassium Chloride 0.004 MEQ/ML / Sodium Chloride 0.103 MEQ/ML / Sodium Lactate 0.028 MEQ/ML Injectable Solution 1,000 mL, Rate: 25 ml/hr, Infuse over: 40 hr, Route: IV, Dosing Weight 91.818 kg, Total Volume: 1,000, Start date: 01/03/17 14:33:00 CDT, Duration: 30 day, Stop date: 02/02/17 14:32:00 CDT Inactive 01/03/2017 [facility] Morphine 2 mg, Route: IVP, Q5Min, Dosing Weight 91.818, kg, PRN Pain Score 4-6, Start date: 01/03/17 12:01:00 CDT, Duration: 5 doses or times, Stop date: Limited # of times Inactive 01/03/2017 [facility] Fentanyl 25 microgram, Route: IVP, Q5Min, Dosing Weight 91.818, kg, PRN Pain Score 4-6, Priority: Routine, Start date: 01/03/17 12:01:00 CDT, Duration: 4 doses or times, Stop date: Limited # of times Inactive 01/03/2017 [facility] Labetalol 10 mg, Route: IVP, Q5Min, Dosing Weight 91.818, kg, PRN Elevated BP, Start date: 01/03/17 12:01:00 CDT, Duration: 5 doses or times, Stop date: Limited # of times Inactive 01/03/2017 [facility] Ondansetron 4 mg, Route: IVP, ONCE, Dosing Weight 91.818, kg, PRN Nausea & Vomiting, Start date: 01/03/17 12:01:00 CDT Inactive 01/03/2017 [facility] Flumazenil 0.2 mg, Route: IVP, PRN, Dosing Weight 91.818, kg, PRN Benzodiazepine Reversal, Initial dose, Start date: 01/03/17 12:01:00 CDT, Duration: 30 day, Stop date: 02/02/17 12:00:00 CDT Inactive 01/03/2017 [facility] Naloxone 0.4 mg, Route: IVP, Q2MIN, Dosing Weight 91.818, kg, PRN Narcotic Reversal, Start date: 01/03/17 12:01:00 CDT, Duration: 8 doses or times, Stop date: Limited # of times Inactive 01/03/2017 [facility] labetalol (ANES) Route: IV, Drug form: INJ, ONCE, Stop date: 01/03/17 10:48:00 CDT Inactive 01/03/2017 [facility] ondansetron (ANES) Route: IV, Drug form: INJ, ONCE, Stop date: 01/03/17 10:43:00 CDT Inactive 01/03/2017 [facility] fentaNYL (ANES) Route: IV, Drug form: INJ, ONCE, Stop date: 01/03/17 10:43:00 CDT Inactive 01/03/2017 [facility] midazolam (ANES) Route: IV, Drug form: SOLN, ONCE, Stop date: 01/03/17 10:33:00 CDT Inactive 01/03/2017 [facility] sodium chloride 0.9% 1000 ml INJ (ANES) Route: IV, Total Volume: 1,000, Start date: 01/03/17 9:55:00 CDT, Stop date: 01/03/17 10:55:00 CDT Inactive 01/03/2017 [facility] RN-Do not give Vanc till trough drawn01/02/17@17:30 RN-Do not give Vanc till trough drawn01/02/17@17:30 , Attn:N, Drug form: MISC, Route: MISC, ONCE, 01/02/17 17:00:00 CDT, Stop date: 01/02/17 17:00:00 CDT No Longer Active 01/02/2017 [facility] Plavix 75 mg, 1 tab, Route: PO, Drug form: TAB, Daily, Dosing Weight 91.818, kg, Start date: 01/02/17 9:00:00 CDT, Duration: 30 day, Stop date: 01/31/17 9:00:00 CDTNotes: (Same As: Plavix) No Longer Active 01/02/2017 [facility] Hydromorphone 0.5 mg, 0.5 mL, Route: IV, Drug form: INJ, Q3H, Dosing Weight 91.818, kg, PRN Pain Score 7-10, Start date: 01/01/17 15:30:00 CDT, Duration: 30 day, Stop date: 01/31/17 15:29:00 CDT No Longer Active 01/01/2017 [facility] sodium chloride 0.9% 1000 ml INJ 1,000 mL 1,000 mL, Rate: 100 ml/hr, Infuse over: 10 hr, Route: IV, Dosing Weight 91.818 kg, Total Volume: 1,000, Start date: 01/01/17 15:30:00 CDT, Duration: 30 day, Stop date: 01/31/17 15:29:00 CDT No Longer Active 01/01/2017 [facility] Acetaminophen 325 MG / Hydrocodone Bitartrate 5 MG Oral Tablet 1 tab, Route: PO, Drug Form: TAB, Dosing Weight 91.818, kg, Q4H, PRN Pain Score 4-6, Start date: 01/01/17 15:30:00 CDT, Duration: 30 day, Stop date: 01/31/17 15:29:00 CDTNotes: (Same as: [place] 325/5) Do not exceed 4gm/day of acetaminophen. No Longer Active 01/01/2017 [facility] Acetaminophen 325 MG / Hydrocodone Bitartrate 10 MG Oral Tablet 2 tab, Route: PO, Drug Form: TAB, Dosing Weight 91.818, kg, Q4H, PRN Pain Score 7-10, Start date: 01/01/17 15:30:00 CDT, Duration: 30 day, Stop date: 01/31/17 15:29:00 CDTNotes: Do not exceed 4gm/day of acetaminophen. (Same as: [place] 325/10) No Longer Active 01/01/2017 [facility] Calcium Chloride 0.0014 MEQ/ML / Potassium Chloride 0.004 MEQ/ML / Sodium Chloride 0.103 MEQ/ML / Sodium Lactate 0.028 MEQ/ML Injectable Solution 1,000 mL, Rate: 100 ml/hr, Infuse over: 10 hr, Route: IV, Dosing Weight 91.818 kg, Total Volume: 1,000, Start date: 01/01/17 15:30:00 CDT, Duration: 30 day, Stop date: 01/31/17 15:29:00 CDT No Longer Active 01/01/2017 [facility] heparin (ANES) Route: IV, Drug form: INJ, ONCE, Stop date: 01/01/17 15:12:00 CDT Inactive 01/01/2017 [facility] hydromorphone (ANES) Route: IV, Drug form: INJ, ONCE, Stop date: 01/01/17 14:57:00 CDT Inactive 01/01/2017 [facility] labetalol (ANES) Route: IV, Drug form: INJ, ONCE, Stop date: 01/01/17 14:51:00 CDT Inactive 01/01/2017 [facility] ondansetron (ANES) Route: IV, Drug form: INJ, ONCE, Stop date: 01/01/17 14:46:00 CDT Inactive 01/01/2017 [facility] ceFAZolin (ANES) Route: IV, Drug form: INJ, ONCE, Stop date: 01/01/17 14:46:00 CDT Inactive 01/01/2017 [facility] midazolam (ANES) Route: IV, Drug form: SOLN, ONCE, Stop date: 01/01/17 14:46:00 CDT Inactive 01/01/2017 [facility] fentaNYL (ANES) Route: IV, Drug form: INJ, ONCE, Stop date: 01/01/17 14:46:00 CDT Inactive 01/01/2017 [facility] LR 1000 mL INJ (ANES) Route: IV, Total Volume: 1,000, Start date: 01/01/17 14:09:00 CDT, Stop date: 01/01/17 15:09:00 CDT Inactive 01/01/2017 [facility] Lactated Ringers Injection IV 1000 mL 1,000 mL, Rate: 25 ml/hr, Infuse over: 40 hr, Route: IV, Dosing Weight 91.818 kg, Total Volume: 1,000, Start date: 01/01/17 13:24:00 CDT, Duration: 30 day, Stop date: 01/31/17 13:23:00 CDT Inactive 01/01/2017 [facility] vancomycin 1.25 gm, 250 mL, Route: IVPB, Drug form: INJ, [id number], Start date: 01/01/17 6:00:00 CDT, Duration: 30 day, Stop date: 01/30/17 18:00:00 CDT, ABX Indication: Bone/Joint InfectionNotes: TIME CRITICAL MEDICATION Same as: Vancocin-NS (premixed) Infusion rate 2001 mg: infuse over 2.5 hours No Longer Active 01/01/2017 [facility] sodium chloride 0.9% 1000 ml INJ 1,000 mL 1,000 mL, Rate: 100 ml/hr, Infuse over: 10 hr, Route: IV, Dosing Weight 91.818 kg, Total Volume: 1,000, Start date: 12/31/16 17:52:00 CDT, Duration: 30 day, Stop date: 01/30/17 17:51:00 CDT No Longer Active 12/31/2016 [facility] RN-Do not give vanc till trough drawn12/31/16@17:30 RN-Do not give vanc till trough drawn12/31/16@17:30 , Attn:RN, Drug form: MISC, Route: MISC, ONCE, 12/31/16 17:00:00 CDT, Stop date: 12/31/16 17:00:00 CDT Inactive 12/31/2016 [facility] pneumococcal 13-valent vaccine 0.5 mL, Route: IM, Drug Form: INJ, Daily, Start date: 12/31/16 12:00:00 CDT, Stop date: 12/31/16 14:00:00 CDTNotes: Shake well prior to use (Same as: Prevnar 13) Inactive 12/31/2016 [facility] pneumococcal 13-valent vaccine 0.5 mL, Route: IM, Drug Form: INJ, ONCE, Start date: 12/31/16 10:09:00 CDT, Stop date: 12/31/16 10:09:00 CDTNotes: Shake well prior to use (Same as: Prevnar 13) Inactive 12/31/2016 [facility] cholecalciferol 5,000 IntlUnit, 1 cap, Route: PO, Drug form: CAP, Daily, Dosing Weight 91.818, kg, Start date: 12/31/16 9:00:00 CDT, Duration: 30 day, Stop date: 01/29/17 9:00:00 CDTNotes: (Same as: Vitamin D3) No Longer Active 12/31/2016 [facility] pregabalin 150 mg, 3 cap, Route: PO, Drug form: CAP, BID, Dosing Weight 91.818, kg, Start date: 12/31/16 9:00:00 CDT, Stop date: 01/29/17 17:00:00 CDTNotes: Same as Lyrica No Longer Active 12/31/2016 [facility] Amitiza 24 microgram, Route: PO, Drug form: CAP, BID, Dosing Weight 91.818, kg, Start date: 12/31/16 9:00:00 CDT, Duration: 30 day, Stop date: 01/29/17 17:00:00 CDT No Longer Active 12/31/2016 [facility] Thyroxine 200 microgram, 1 tab, Route: PO, Drug form: TAB, Q630AM, Dosing Weight 91.818, kg, Start date: 12/31/16 6:30:00 CDT, Duration: 30 day, Stop date: 01/29/17 6:30:00 CDTNotes: Take 1 hour before or 2 hours after meal; Enteral feeds may interefere with the absorption of this medication. (Same as: Levothroid) No Longer Active 12/31/2016 [facility] Please bring pt's own med amitiza (lubiprostone) to pharm Please bring pt's own med amitiza (lubiprostone) to pharm, reminder, Drug form: MISC, Route: MISC, QSHIFT, 12/31/16 0:00:00 CDT, Duration: 30 day, Stop date: 01/29/17 16:00:00 CDT No Longer Active 12/31/2016 [facility] aspirin 81 mg tablet, enteric coated 81 mg, 1 tab, Route: PO, Drug form: ECTAB, Daily, Dosing Weight 91.818, kg, Start date: 12/30/16 19:00:00 CDT, Duration: 30 day, Stop date: 01/29/17 9:00:00 CDTNotes: Do not crush or chew. (Same As: Ecotrin) No Longer Active 12/31/2016 [facility] heparin 5,000 unit, 1 mL, Route: SUB-Q, Drug form: INJ, Q8Hnow, Dosing Weight 91.818, kg, Start date: 12/30/16 17:00:00 CDT, Duration: 30 day, Stop date: 01/29/17 9:00:00 CDTNotes: porcine heparin No Longer Active 12/30/2016 [facility] Docusate 100 mg, 1 cap, Route: PO, Drug form: CAP, BID, Dosing Weight 91.818, kg, Start date: 12/30/16 9:00:00 CDT, Duration: 30 day, Stop date: 01/28/17 17:00:00 CDTNotes: (Same as: Colace) (Do Not Crush) No Longer Active 12/30/2016 [facility] Streptococcus pneumoniae serotype 1 capsular antigen diphtheria [id number] protein conjugate vaccine / Streptococcus pneumoniae serotype 14 capsular antigen diphtheria [id number] protein conjugate vaccine / Streptococcus pneumoniae serotype 18C capsular antigen d 0.5 mL, Route: IM, Drug Form: INJ, Daily, Start date: 12/30/16 9:00:00 CDT, Duration: 1 doses or times, Stop date: 12/30/16 9:00:00 CDTNotes: Shake well prior to use (Same as: Prevnar 13) No Longer Active 12/30/2016 [facility] Zosyn 3.375 gm, Route: IVPB, [id number], Dosing Weight 91.818, kg, CrCl >=20 ml/min infuse over 4 hours, Start date: 12/30/16 6:00:00 CDT, Duration: 7 day, Stop date: 01/05/17 22:00:00 CDT, ABX Indication: Skin/Soft Tissue InfectionNotes: (Same as: Zosyn) Dosing based on Piperacillin component MEDICATION WASTE Product Size: 3375 mg Product Wasted: ___ mg No Longer Active 12/30/2016 [facility] Vancomycin 1,000 mg, Route: IVPB, [id number], Dosing Weight 91.818, kg, Start date: 12/30/16 6:00:00 CDT, Duration: 7 day, Stop date: 01/05/17 18:00:00 CDT, ABX Indication: Skin/Soft Tissue InfectionNotes: TIME CR ITICAL MEDICATION (Same As: Vancocin) Infusion rate 2001 mg: infuse over 2.5 hours MEDICATION WASTE Product Size: 1000 mg Product Wasted: ___ mg No Longer Active 12/30/2016 [facility] Insulin, Aspart, Human 3 unit, 0.03 [...] days from Date No Longer Active 12/30/2016 [facility] Dextrose 50% Syringe 25 gm, 50 mL, Route: IVP, Drug Form: INJ, Dosing Weight 91.818, kg, PRN, PRN Blood Glucose Results, Start date: 12/30/16 5:43:00 CDT, Duration: 30 day, Stop date: 01/29/17 5:42:00 CDT No Longer Active 12/30/2016 [facility] Glucagon 1 mg, Route: IM, Drug form: PDR/INJ, PRN, Dosing Weight 91.818, kg, PRN Blood Glucose Results, Start date: 12/30/16 5:43:00 CDT, Duration: 30 day, Stop date: 01/29/17 5:42:00 CDT No Longer Active 12/30/2016 [facility] Saline Flush 0.9% 10 ml, Route: IVP, Drug Form: INJ, Dosing Weight 91.818, kg, PRN, PRN Line Flush, Start date: 12/30/16 5:41:00 CDT, Duration: 30 day, Stop date: 01/29/17 5:40:00 CDTNotes: (Same as: BD Posiflush) No Longer Active 12/30/2016 [facility] Sodium Chloride 0.154 MEQ/ML Injectable Solution 1,000 mL, Rate: 75 ml/hr, Infuse over: 13.3 hr, Route: IV, Dosing Weight 91.818 kg, Total Volume: 1,000, Start date: 12/30/16 5:41:00 CDT, Duration: 30 day, Stop date: 01/29/17 5:40:00 CDT No Longer Active 12/30/2016 [facility] Morphine 2 mg, 1 mL, Route: IVP, Drug form: INJ, Q4H, Dosing Weight 91.818, kg, PRN Pain Score 7-10, Start date: 12/30/16 5:41:00 CDT, Duration: 30 day, Stop date: 01/29/17 5:40:00 CDTNotes: (Same as:MORPhine Sulfate) No Longer Active 12/30/2016 [facility] Acetaminophen 325 MG / Hydrocodone Bitartrate 5 MG Oral Tablet 2 tab, Route: PO, Drug Form: TAB, Dosing Weight 91.818, kg, Q4H, PRN Pain Score 7-10, Start date: 12/30/16 5:41:00 CDT, Duration: 30 day, Stop date: 01/29/17 5:40:00 CDTNotes: (Same as: [place] 325/5) Do not exceed 4gm/day of acetaminophen. No Longer Active 12/30/2016 [facility] Ondansetron 4 mg, 2 mL, Route: IVP, Drug form: INJ, Q6H, Dosing Weight 91.818, kg, PRN Nausea & Vomiting, Start date: 12/30/16 5:41:00 CDT, Duration: 30 day, Stop date: 01/29/17 5:40:00 CDTNotes: (Same as: Zofran) MEDICATION WASTE Product Size: 4 mg Product Wasted: ___ mg No Longer Active 12/30/2016 [facility] Morphine 2 mg, 1 mL, Route: IVP, Drug form: INJ, Q4H, Dosing Weight 91.818, kg, PRN Pain Score 7-10, Start date: 12/30/16 5:04:00 CDT, Duration: 30 day, Stop date: 01/29/17 5:03:00 CDTNotes: (Same as:MORPhine Sulfate) Inactive 12/30/2016 [facility] sodium chloride 0.9% 1000 ml INJ 1,000 mL 1,000 mL, Rate: 125 ml/hr, Infuse over: 8 hr, Route: IV, Dosing Weight 91.818 kg, Total Volume: 1,000, Start date: 12/30/16 5:03:00 CDT, Duration: 30 day, Stop date: 01/29/17 5:02:00 CDT Inactive 12/30/2016 [facility] Docusate Sodium 100 MG Oral Capsule [Colace] 100 mg=1 cap, PO, Daily, 0 Refill(s) Active 12/30/2016 [facility] Clindamycin 150 mg, PO, ABXQ8H, 0 Refill(s) No Longer Active 12/30/2016 [facility] Esomeprazole 40 MG Enteric Coated Capsule [Nexium] 40 mg=1 cap, PO, Daily, 0 Refill(s) Inactive 12/30/2016 [facility] Glucosamine 500 mg, PO, Daily, 0 Refill(s) Active 12/30/2016 [facility] cholecalciferol 5,000 IntlUnit, PO, Daily, 0 Refill(s) Active 12/30/2016 [facility] Niacin 500 mg, PO, Daily, 0 Refill(s) Active 12/30/2016 [facility] Thyroxine 200 microgram, PO, Daily, 0 Refill(s) Active 12/30/2016 [facility] potassium gluconate 595 mg oral tablet 595 mg po oral daily, 0 Refill(s) Active 12/30/2016 [facility] lubiprostone 0.024 MG Oral Capsule [Amitiza] 24 microgram=1 cap, PO, BID, 0 Refill(s) Active 12/30/2016 [facility] Insulin Glargine 100 UNT/ML Injectable Solution 0.3 unit/kg, SUB-Q, BID, 50 units sq bid, 0 Refill(s) Active 12/30/2016 [facility] aspirin 81 mg tablet, enteric coated 81 mg=1 tab, PO, Daily, # 90 tab, 3 Refill(s) Active 12/30/2016 [facility] pregabalin 75 mg oral capsule 75 mg=1 cap, PO, BID, 0 Refill(s) Active 12/30/2016 [facility] losartan 50 mg oral tablet 50 mg=1 tab, PO, Daily, 0 Refill(s) Active 12/30/2016 [facility] Vitamin B Complex oral tablet 1 tab, PO, Daily, 0 Refill(s) Active 12/30/2016 [facility] tramadol hydrochloride 50 MG Oral Tablet [Ultram] 50 mg=1 tab, PO, Q4H, PRN pain, X 5 day, # 30 tab, 0 Refill(s) Active 07/03/2015 [facility] Ondansetron 4 MG Disintegrating Tablet [Zofran] 4 mg=1 tab, PO, BID, PRN Nausea and Vomiting, Dissolve tab under tongue, X 3 day, # 10 tab, 0 Refill(s) Active 07/03/2015 [facility] Zofran 4 mg, Route: IVP, Drug form: INJ, ONCE, Dosing Weight 98.182, kg, Priority: STAT, Start date: 07/03/15 8:51:00, Stop date: 07/03/15 8:51:00 Inactive 07/03/2015 [facility] tramadol hydrochloride 50 MG Oral Tablet [Ultram] 1 tab, Route: PO, Drug form: TAB, ONCE, Dosing Weight 98.182, kg, Priority: STAT, Start date: 07/03/15 8:50:00, Stop date: 07/03/15 8:50:00 Inactive 07/03/2015 [facility] Morphine 4 mg, 2 mL, Route: IVP, Drug form: INJ, ONCE, Dosing Weight 98.182, kg, Priority: STAT, Start date: 07/03/15 8:11:00, Stop date: 07/03/15 8:11:00Notes: (Same as:MORPhine Sulfate) Inactive 07/03/2015 [facility] Acetaminophen 325 MG Oral Tablet [Tylenol] 650 mg=2 tab, PO, Q4H, PRN Pain, X 3 day, # 36 tab, 0 Refill(s) Active 07/02/2015 [facility] Acetaminophen 650 mg, Route: PO, Drug form: TAB, ONCE, Dosing Weight 100, kg, Priority: STAT, Start date: 07/02/15 6:06:00, Stop date: 07/02/15 6:06:00 Inactive 07/02/2015 [facility] Zofran ODT 4 mg, Route: PO, Drug form: TABDIS, ONCE, Dosing Weight 100, kg, Priority: STAT, Start date: 07/02/15 6:06:00, Stop date: 07/02/15 6:06:00 Inactive 07/02/2015 [facility] NPH Insulin, Human 70 UNT/ML / Regular Insulin, Human 30 UNT/ML Injectable Suspension [Novolin 70/30] See Special Instructions, SUB-Q, BID-Before Meals, Take as previously prescribed, # 10 vial, 0 Refill(s)Special Instructions: Take as previously prescribed Active 07/03/2014 [facility] Nitrofurantoin 100 MG Oral Capsule [Macrobid] 100 mg=1 cap, PO, BID, # 14 cap, 0 Refill(s) Active 07/03/2014 [facility] Allergies, Adverse Reactions, Alerts Substance Category Reaction Severity Reaction type Status Date Reported Comments Source Actos Assertion Drug allergy Active [facility] Immunizations Immunization Date Given Site Status Last Updated Comments Source pneumococcal 13-valent vaccine 12/31/2016 Right deltoid completed [facility] Results Order Name Results Value Reference Range Date Interpretation Comments Source HEMATOLOGY Hgb 8.1 12.0 - 16.0 01/05/2017 [facility] HEMATOLOGY RBC 2.62 4.20 - 5.40 01/05/2017 [facility] HEMATOLOGY WBC 8.9 3.7 - 10.4 01/05/2017 [facility] HEMATOLOGY RDW 13.1 11.5 - 14.5 01/05/2017 [facility] HEMATOLOGY MCHC 34.1 32.0 - 36.0 01/05/2017 [facility] HEMATOLOGY Hct 23.8 36.0 - 48.0 01/05/2017 [facility] HEMATOLOGY MCH 30.9 27.0 - 31.0 01/05/2017 [facility] HEMATOLOGY MCV 90.6 80.0 - 98.0 01/05/2017 [facility] HEMATOLOGY Platelet 290 133 - 450 01/05/[address] [facility] MPV 7.6 7.4 - 10.4 01/05/2017 [facility] CHEM PANEL eGFR 92 01/04/2017 Result [...] should be multiplied by the estimated BMI. [facility] CHEM PANEL Chloride Lvl 102 95 - 109 01/04/2017 [facility] CHEM PANEL CO2 27 24 - 32 01/04/2017 [facility] CHEM PANEL Calcium Lvl 8.0 8.5 - 10.5 01/04/2017 [facility] CHEM PANEL Sodium Lvl 135 135 - 145 01/04/2017 [facility] CHEM PANEL Potassium Lvl 3.8 3.5 - 5.1 01/04/2017 [facility] CHEM PANEL Glucose Lvl 215 70 - 99 01/04/2017 [facility] CHEM PANEL BUN 7 7 - 22 01/04/2017 [facility] CHEM PANEL Creatinine Lvl 0.67 0.50 - 1.40 01/04/2017 [facility] CHEM PANEL AGAP 9.8 10.0 - 20.0 01/04/[address] [facility] MPV 7.0 7.4 - 10.4 01/04/[address] [facility] Platelet 256 133 - 450 01/04/2017 [facility] HEMATOLOGY RDW 13.3 11.5 - 14.5 01/04/[address] [facility] MCHC 33.8 32.0 - 36.0 01/04/[address] [facility] MCH 30.2 27.0 - 31.0 01/04/2017 [facility] HEMATOLOGY MCV 89.5 80.0 - 98.0 01/04/[address] [facility] Hct 22.2 36.0 - 48.0 01/04/[address] [facility] WBC 9.2 3.7 - 10.4 01/04/[address] [facility] Hgb 7.5 12.0 - 16.0 01/04/2017 [facility] HEMATOLOGY RBC 2.48 4.20 - 5.40 01/04/2017 [facility] TOXICOLOGY Vanco Tr TND 0 01/02/2017 [facility] TOXICOLOGY Vanco Tr 19.3 01/02/2017 [facility] CHEM PANEL eGFR 92 01/02/2017 Result [...] should be multiplied by the estimated BMI. [facility] CHEM PANEL BUN 7 7 - 22 01/02/2017 [facility] CHEM PANEL Creatinine Lvl 0.67 0.50 - 1.40 01/02/2017 [facility] CHEM PANEL Sodium Lvl 134 135 - 145 01/02/2017 [facility] CHEM PANEL Glucose Lvl 134 70 - 99 01/02/2017 [facility] CHEM PANEL AGAP 11.9 10.0 - 20.0 01/02/2017 [facility] CHEM PANEL CO2 26 24 - 32 01/02/2017 [facility] CHEM PANEL Calcium Lvl 8.0 8.5 - 10.5 01/02/2017 [facility] CHEM PANEL Potassium Lvl 3.9 3.5 - 5.1 01/02/2017 [facility] CHEM PANEL Chloride Lvl 100 95 - 109 01/02/2017 [facility] HEMATOLOGY Eosinophils # 0.1 0.0 - 0.5 01/02/2017 [facility] HEMATOLOGY Basophils # 0.2 0.0 - 0.2 01/02/2017 [facility] HEMATOLOGY Basophils 1.3 0.0 - 1.0 01/02/2017 [facility] HEMATOLOGY Lymphocytes # 1.9 1.0 - 5.5 01/02/[address] [facility] Lymphocytes 16.3 20.0 - 40.0 01/02/[address] [facility] Segs-Bands # 8.8 1.5 - 8.1 01/02/[address] [facility] Monocytes # 0.9 0.0 - 0.8 01/02/2017 [facility] HEMATOLOGY Segs 74.3 45.0 - 75.0 01/02/2017 [facility] HEMATOLOGY Eosinophils 0.6 0.0 - 4.0 01/02/[address] [facility] Monocytes 7.5 2.0 - 12.0 01/02/[address] [facility] RDW 12.9 11.5 - 14.5 01/02/[address] [facility] MCH 30.4 27.0 - 31.0 01/02/[address] [facility] MCHC 33.7 32.0 - 36.0 01/02/[address] [facility] MCV 90.3 80.0 - 98.0 01/02/[address] [facility] Hgb 8.3 12.0 - 16.0 01/02/[address] [facility] Hct 24.6 36.0 - 48.0 01/02/[address] [facility] RBC 2.73 4.20 - 5.40 01/02/[address] [facility] WBC 11.9 3.7 - 10.4 01/02/[address] [facility] MPV 7.4 7.4 - 10.4 01/02/[address] [facility] Platelet 266 133 - 450 01/02/2017 [facility] ELECTROLYTES AGAP 11.0 10.0 - 20.0 01/01/2017 [facility] ELECTROLYTES eGFR 93 01/01/2017 Result Comment: [...] should be multiplied by the estimated BMI. [facility] ELECTROLYTES Chloride Lvl 101 95 - 109 01/01/2017 [facility] ELECTROLYTES Sodium Lvl 135 135 - 145 01/01/2017 [facility] ELECTROLYTES Potassium Lvl 4.0 3.5 - 5.1 01/01/2017 [facility] ELECTROLYTES Calcium Lvl 8.8 8.5 - 10.5 01/01/2017 [facility] ELECTROLYTES CO2 27 24 - 32 01/01/2017 [facility] ELECTROLYTES Creatinine Lvl 0.64 0.50 - 1.40 01/01/2017 [facility] ELECTROLYTES BUN 6 7 - 22 01/01/2017 [facility] ELECTROLYTES Glucose Lvl 82 70 - 99 01/01/2017 [facility] BLOOD BANK RESULTS Antibody Scrn Negative (12/31/16 6:51 PM) 12/31/2016 [facility] BLOOD BANK RESULTS ABO/Rh O POS 12/31/2016 [facility] HEMATOLOGY PTT 45.9 22.9 - 35.8 12/31/2016 [facility] HEMATOLOGY INR 1.14 0.85 - 1.17 12/31/2016 [facility] HEMATOLOGY PT 14.8 12.0 - 14.7 12/31/2016 [facility] HEMATOLOGY Lymphocytes 18.8 20.0 - 40.0 12/31/2016 [facility] HEMATOLOGY Eosinophils 1.5 0.0 - 4.0 12/31/2016 [facility] HEMATOLOGY Segs 71.0 45.0 - 75.0 12/31/2016 [facility] HEMATOLOGY Monocytes 8.0 2.0 - 12.0 12/31/2016 [facility] HEMATOLOGY Basophils 0.7 0.0 - 1.0 12/31/2016 [facility] HEMATOLOGY Segs-Bands # 8.0 1.5 - 8.1 12/31/2016 [facility] HEMATOLOGY Monocytes # 0.9 0.0 - 0.8 12/31/2016 [facility] HEMATOLOGY Lymphocytes # 2.1 1.0 - 5.5 12/31/2016 [facility] HEMATOLOGY Eosinophils # 0.2 0.0 - 0.5 12/31/2016 [facility] HEMATOLOGY Basophils # 0.1 0.0 - 0.2 12/31/2016 [facility] TOXICOLOGY Vanco Tr 12.5 12/31/2016 [facility] TOXICOLOGY Vanco Tr TND 0 12/31/2016 [facility] CHEM PANEL Magnesium Lvl 1.9 1.8 - 2.4 12/31/2016 [facility] CHEM PANEL B/C Ratio 17 6 - 25 12/31/2016 [facility] CHEM PANEL A/G Ratio 0.4 0.7 - 1.6 12/31/2016 [facility] CHEM PANEL Globulin 4.6 2.7 - 4.2 12/31/2016 [facility] CHEM PANEL ALT 23 0 - 65 12/31/2016 [facility] CHEM PANEL Total Protein 6.6 6.4 - 8.4 12/31/2016 [facility] CHEM PANEL Albumin Lvl 2.0 3.5 - 5.0 12/31/2016 [facility] CHEM PANEL Alk Phos 290 39 - 136 12/31/2016 [facility] CHEM PANEL AST 23 0 - 37 12/31/2016 [facility] CHEM PANEL Bili Total 0.6 0.2 - 1.3 12/31/2016 [facility] CHEM PANEL Phosphorus 3.4 2.5 - 4.5 12/31/2016 [facility] HEMATOLOGY Monocytes 8.5 2.0 - 12.0 12/31/2016 [facility] HEMATOLOGY Lymphocytes 18.0 20.0 - 40.0 12/31/2016 [facility] HEMATOLOGY Segs 70.6 45.0 - 75.0 12/31/2016 [facility] HEMATOLOGY Monocytes # 0.8 0.0 - 0.8 12/31/2016 [facility] HEMATOLOGY Segs-Bands # 6.9 1.5 - 8.1 12/31/2016 [facility] HEMATOLOGY Basophils 0.9 0.0 - 1.0 12/31/2016 [facility] HEMATOLOGY Lymphocytes # 1.7 1.0 - 5.5 12/31/2016 [facility] HEMATOLOGY Eosinophils 2.0 0.0 - 4.0 12/31/2016 [facility] HEMATOLOGY Basophils # 0.1 0.0 - 0.2 12/31/2016 [facility] HEMATOLOGY Eosinophils # 0.2 0.0 - 0.5 12/31/2016 [facility] HEMATOLOGY INR 1.22 0.85 - 1.17 12/31/2016 [facility] HEMATOLOGY PTT 44.6 22.9 - 35.8 12/31/2016 [facility] HEMATOLOGY PT 15.7 12.0 - 14.7 12/31/2016 [facility] SPECIAL CHEMISTRY Hgb A1C 9.1 <=5.6 % 12/31/2016 [facility] CHEM PANEL Lactic Acid Lvl 1.0 0.5 - 2.2 12/30/2016 [facility] CHEM PANEL eGFR 63 07/03/2015 Result [...] Bili Total 0.7 0.2 - 1.3 07/03/2015 [facility] CHEM PANEL AST 18 0 - 37 07/03/2015 [facility] CHEM PANEL Albumin Lvl 3.4 3.5 - 5.0 07/03/2015 [facility] CHEM PANEL ALT 34 0 - 65 07/03/2015 [facility] CHEM PANEL Sodium Lvl 126 135 - 145 07/03/2015 [facility] CHEM PANEL Creatinine Lvl 0.95 0.50 - 1.40 07/03/2015 [facility] CHEM PANEL BUN 13 7 - 22 07/03/2015 [facility] CHEM PANEL Glucose Lvl 315 70 - 99 07/03/2015 [facility] CHEM PANEL Total Protein 7.4 6.4 [...] PANEL Globulin 4.0 2.0 - 4.0 07/03/2015 [facility] CHEM PANEL A/G Ratio 0.8 0.7 - 1.6 07/03/2015 [facility] CHEM PANEL AGAP 12.1 10.0 - 20.0 07/03/2015 [facility] HEMATOLOGY MPV 9.3 7.4 - 10.4 07/03/2015 [facility] HEMATOLOGY Platelet 191 133 - 450 07/03/2015 [facility] HEMATOLOGY RDW 12.6 11.5 - 14.5 07/03/2015 [facility] HEMATOLOGY MCHC 33.9 32.0 - 36.0 07/03/[address] [facility] MCH 32.1 27.0 - 31.0 07/03/2015 [facility] HEMATOLOGY RBC 4.20 4.20 - 5.40 07/03/2015 [facility] HEMATOLOGY MCV 94.5 80.0 - 98.0 07/03/2015 [facility] HEMATOLOGY Hct 39.6 36.0 - 48.0 07/03/2015 [facility] HEMATOLOGY Hgb 13.5 12.0 - 16.0 07/03/2015 [facility] HEMATOLOGY WBC 8.5 3.7 - 10.4 07/03/2015 [facility] HEMATOLOGY Monocytes 4.9 2.0 - 12.0 07/03/2015 [facility] HEMATOLOGY Segs 72.4 45.0 - 75.0 07/03/2015 [facility] HEMATOLOGY Lymphocytes 20.2 20.0 - 40.0 07/03/2015 [facility] HEMATOLOGY Monocytes # 0.4 0.0 - 0.8 07/03/2015 [facility] HEMATOLOGY Basophils # 0.1 0.0 - 0.2 07/03/2015 [facility] HEMATOLOGY Eosinophils # 0.1 0.0 - 0.5 07/03/2015 [facility] HEMATOLOGY Lymphocytes # 1.7 1.0 - 5.5 07/03/2015 [facility] HEMATOLOGY Segs-Bands # 6.2 1.5 - 8.1 07/03/2015 [facility] HEMATOLOGY Basophils 1.1 0.0 - 1.0 07/03/2015 [facility] HEMATOLOGY Eosinophils 1.4 0.0 - 4.0 07/03/2015 [facility] URINE AND STOOL UA Color Ltyellow [...] Blood Negative (07/03/14 2:59 PM) Negative 07/03/2014 [facility] URINE AND STOOL UA Ketones Negative mg/dL Negative mg/dL 07/03/2014 [facility] URINE AND STOOL UA Bili Negative *NA* (07/03/14 2:59 PM) Negative 07/03/2014 [facility] CARDIAC ENZYMES CK MB Index 2.6 0.0 - 2.5 07/03/2014 [facility] CARDIAC ENZYMES Troponin-I 0.10 0.00 - 0.40 07/03/2014 [facility] CARDIAC ENZYMES CK MB 2.3 0.5 - 3.6 07/03/2014 [facility] CARDIAC ENZYMES Total CK 88 12 - 191 07/03/2014 [facility] CHEM PANEL Magnesium Lvl 1.8 1.8 - 2.4 07/03/2014 [facility] ELECTROLYTES Sodium Lvl 133 135 - 145 07/03/2014 [facility] ELECTROLYTES Potassium Lvl 3.9 3.5 - 5.1 07/03/2014 [facility] ELECTROLYTES Chloride Lvl 97 95 - 109 07/03/2014 [facility] ELECTROLYTES Alk Phos 147 39 - 136 07/03/2014 [facility] ELECTROLYTES Bili Total 0.5 0.2 - 1.3 07/03/2014 [facility] ELECTROLYTES ALT 97 0 - 65 07/03/2014 [facility] ELECTROLYTES AST 80 0 - 37 07/03/2014 [facility] ELECTROLYTES Total Protein 7.8 6.4 - 8.4 07/03/2014 [facility] ELECTROLYTES Albumin Lvl 3.6 3.5 - 5.0 07/03/2014 [facility] ELECTROLYTES CO2 27 24 - 32 07/03/2014 [facility] ELECTROLYTES Calcium Lvl 9.0 8.5 - 10.5 07/03/2014 [facility] ELECTROLYTES Creatinine Lvl 1.0 0.5 - 1.4 07/03/2014 [facility] ELECTROLYTES A/G Ratio 0.9 0.7 - 1.6 07/03/2014 [facility] ELECTROLYTES Globulin 4.2 2.0 - 4.0 07/03/2014 [facility] ELECTROLYTES B/C Ratio 12 6 - 25 07/03/2014 [facility] ELECTROLYTES AGAP 12.9 10.0 - 20.0 07/03/2014 [facility] ELECTROLYTES eGFR 60 07/03/2014 <sup>1</sup>Result Comment: [...] should be multiplied by the estimated BMI. [facility] ELECTROLYTES Glucose Lvl 304 70 - 99 07/03/2014 <sup>2</sup>Interpretive Data: Adult reference range values reflect the clinical guidelines
of the [place] [employer]. [facility] ELECTROLYTES BUN 12 7 - 22 07/03/[address] [facility] PTT 28.5 22.9 - 35.8 07/03/2014 <sup>4</sup>Interpretive Data: Heparin Therapeutic Range: 57 - [address] [facility] PT 12.7 12.0 - 14.7 07/03/[address] [facility] INR 0.95 0.85 - 1.17 07/03/2014 <sup>3</sup>Interpretive Data: RECOMMENDED RANGES FOR PROTIME INR:
2.0-3.0 for most medical and surgical thromboembolic states.
2.5-3.5 for artificial heart valves and recurrent embolism.

INR SHOULD BE USED ONLY FOR PATIENTS ON STABLE ANTICOAGULANT THERAPY. [facility] HEMATOLOGY Monocytes # 0.7 0.0 - 0.8 07/03/2014 [facility] HEMATOLOGY Eosinophils # 0.2 0.0 - 0.5 07/03/2014 [facility] HEMATOLOGY Basophils # 0.1 0.0 - 0.2 07/03/[address] [facility] Lymphocytes # 3.1 1.0 - 5.5 07/03/2014 [facility] HEMATOLOGY Eosinophils 2.1 0.0 - 4.0 07/03/[address] [facility] Basophils 1.1 0.0 - 1.0 07/03/[address] [facility] Monocytes 6.6 2.0 - 12.0 07/03/[address] [facility] Segs-Bands # 5.8 1.5 - 8.1 07/03/[address] [facility] Segs 59.1 45.0 - 75.0 07/03/[address] [facility] Lymphocytes 31.1 20.0 - 40.0 07/03/[address] [facility] Hgb 14.3 12.0 - 16.0 07/03/[address] [facility] RBC 4.35 4.20 - 5.40 07/03/[address] [facility] WBC 9.8 3.7 - 10.4 07/03/[address] [facility] Hct 40.8 36.0 - 48.0 07/03/[address] [facility] MCH 32.9 27.0 - 31.0 07/03/[address] [facility] Platelet 221 133 - 450 07/03/[address] [facility] MCHC 35.1 32.0 - 36.0 07/03/[address] [facility] RDW 13.2 11.5 - 14.5 07/03/[address] [facility] MCV 93.8 80.0 - 98.0 07/03/[address] [facility] MPV 9.5 7.4 - 10.4 07/03/2014 [facility] Pathology Reports No Data Provided for [...] No definite radiographic evidence of osteomyelitis. SL: [id number] 01/03/2017 [facility] Chest 1view DX Patient Name: JE TIPTON : 1950; Age: 66 years y/o Female MR: [id number] Study: Chest 1view DX 12/31/2016 5:52 PM CDT Ordering Physician: Ward Hines MD Clinical Indication: - abnormal chest sounds; Comparison: 07/02/2015 Chest one view Lungs are clear. Stable mild cardiomegaly. No overt congestive heart failure or pulmonary edema. No pleural effusion or pneumothorax. Degenerative changes are present within the shoulders and spine. IMPRESSION: Stable mild cardiomegaly, without additional acute findings. SL: [id number] 12/31/2016 [facility] Ext Lower Arterial bilat w pressure US Please refer to the heart lab report, located under vascular in [facility]. 12/31/2016 [facility] Foot w/wo contrast MRI Exam: Left [...] disuse or denervation changes. SL: [id number] 12/30/2016 [facility] Chest/Abdomen/Pelvis w IV contrast CT EXAM: [...] mm gallbladder polyp versus stone. SL: 07/03/2015 [facility] Brain wo contrast CT CT head [...] detected. MRI brain if indicated. SL: 07/02/2015 [facility] Spine cervical series DX PROCEDURE: Spine [...] anterior endplate spurring is present. SL: 07/02/2015 [facility] Spine lumbar series DX PROCEDURE: Spine [...] of stool within the colon. SL: 07/02/2015 [facility] Wrist complete DX PROCEDURE: Right Wrist complete ( 3 views) REASON FOR EXAM: See Clinic Indication CLINICAL INDICATION: Pain Post Trauma COMPARISON: None. FINDINGS: Mild diffuse soft tissue swelling about the wrist. No definite acute fracture or dislocation. Marked narrowing of the radiocarpal joint. Subchondral cystic change is present within the distal pole of the scaphoid bone. SL: 07/02/2015 [facility] Ribs unilateral 3 views w PA chest DX PROCEDURE: Right Ribs unilateral 3 views with PA chest REASON FOR EXAM: See Clinic Indication CLINICAL INDICATION: Pain Post Trauma COMPARISON: 07/03/2014. FINDINGS: No acute cardiopulmonary process detected. Stable mild cardiomegaly. No definite failure. No definite displaced rib fracture or rib lesion detected. Abundance of stool within the colon. SL: 07/02/2015 [facility] Chest 2 views CHEST 2 VIEWS HX: Chest pain COMPARISON: NONE. FINDINGS: The lungs are free of consolidation or pleural effusion and the mediastinal silhouette is within normal limits of size. The visualized osseous structures are grossly negative. IMPRESSION: Negative chest. SL: 07/03/2014 [facility] Brain wo contrast CT CT BRAIN WITHOUT CONTRAST INDICATION: Weakness COMPARISON: None FINDINGS: There is no evidence of acute vascular insults, space occupying lesions, hemorrhage, hydrocephalus, midline shift, or extra-axial collections. The calvarium is intact. IMPRESSION: No acute intracranial abnormalities are visualized. SL: 07/03/2014 [facility] Consultation Notes No Data Provided for This Section Discharge Summaries No Data Provided for This Section History and Physicals No Data Provided for This Section Vital Signs Vital Sign Value Date Comments Source Systolic (mm Hg) 170 01/05/2017 [facility] Diastolic (mm Hg) 82 01/05/2017 [facility] [...] cm 12/30/2016 [facility] BMI Calculated 31.7 12/30/2016 [facility] Temperature Oral (F) 97.6 F 11/09/2016 [facility] Weight 97.727 11/09/2016 [facility] Respitory Rate 20 11/09/2016 [facility] Heart Rate 89 11/09/2016 [facility] BMI Calculated 33.74 11/09/2016 [facility] Height 170.18 cm 11/09/2016 [facility] Systolic (mm Hg) 221 11/09/2016 [facility] Diastolic (mm Hg) 115 11/09/2016 [facility] Heart Rate 66 07/03/2015 [facility] Respitory Rate 17 07/03/2015 [facility] Systolic (mm Hg) 132 07/03/2015 [facility] Diastolic (mm Hg) 85 07/03/2015 [facility] Temperature Oral (F) 98.2 F 07/03/2015 [...] 07/02/2015 [facility] Diastolic (mm Hg) 103 07/02/2015 [facility] Temperature Oral (F) 98.9 F 07/02/2015 [facility] Temperature Oral (F) 98.2 F 07/03/2014 [facility] Diastolic (mm Hg) 75 07/03/2014 [facility] Heart Rate 75 07/03/2014 [facility] Systolic (mm Hg) 132 07/03/2014 [facility] Respitory Rate 18 07/03/2014 [facility] Weight 100 07/03/2014 [facility] BMI Calculated 34.53 07/03/2014 [facility] Height 170.18 cm 07/03/2014 [facility] Systolic (mm Hg) 150 07/03/2014 [facility] Respitory Rate 20 07/03/2014 [facility] Heart Rate 78 07/03/2014 [facility] Temperature Oral (F) 97.7 F 07/03/2014 [facility] Diastolic (mm Hg) 58 07/03/2014 [facility] Encounters Location Location Details Encounter Type Encounter Number Reason For Visit Attending Provider ADM Date DC Date Status Source [facility] Outpatient [id number] 719.41/ 719.46 MONTEZ SYED 05/10/2011 Active [facility] [id number] Finesse Gallego 07/03/2014 07/03/2014 [facility] [id number] Finesse Gallego 07/02/2015 07/02/2015 [facility] [id number] Mariana Garcia 07/03/2015 07/03/2015 [facility] Emergency [id number] Mainor Wilson 11/09/2016 11/09/2016 [facility] Inpatient [id number] Sha Carcamo 12/30/2016 01/05/2017 [facility] Procedures Procedure Code Date Perfomer Comments Source Cataract surgery [id number] [facility] Assessment and Plan Assessment and Plan [...] 15) L 26.2 (MAMIE 14) L 27.8 (MAMIE 13) Plt 256 (MAMIE 17) 266 (MAMIE [...] consulted Plan to discharge home tomorrow 01/05/2017 [facility] Plan of Care No Data Provided for This Section Social History Social History Date Source Social History TypeResponse Smoking Status Never smoker; Ready to change: No; Concerns about tobacco use in household: No; Exposure to Tobacco Smoke None; Cigarette Smoking Last 365 Days No; Reg Smoking Cessation Counseling No 12/30/2016 [facility] Family History No Data Provided for This Section Advance Directives No Data Provided for This Section Functional Status No Data Provided for This Section
--- NOTE | 2019-01-15 18:27 | Diagnostic Imaging Report ---
RADIOGRAPH(S) OF THE ABDOMEN AND PELVIS, 4 view(s) HISTORY: Abdominal pain, constipation, rule out obstruction, severe rectal pain COMPARISON: None available. FINDINGS: No specific evidence of obstruction or ileus. Multiple pelvic malleolus. Very large colonic fecal burden. The bones are partially obscured by stool and overlying bowel gas. IMPRESSION: 1. Nonobstructive bowel gas pattern. 2. Very large colonic fecal burden, compatible with provided history of constipation. Fecal impaction may be a consideration. Signed by: Dr. Chris Paul D.O., M.M.M. on 01/15/2019 6:24 PM
--- NOTE | 2019-01-15 19:01 | NUR ---
family assist pt to br and had a good bm; dr. kirby informed
[2019-01-15 19:06] LABS: BILIRUBIN,URINE NEGATIVE (NEGATIVE); CLARITY,URINE CLEAR (CLEAR); COLOR,URINE YELLOW (YELLOW); KETONES,URINE NEGATIVE (NEGATIVE); LEUKOCYTE ESTERASE ,URINE NEGATIVE (NEGATIVE); NITRITE,URINE NEGATIVE (NEGATIVE); PROTEIN,URINE DIPSTICK TRACE (NEGATIVE); URINE UROBILINOGEN 0.2 mg/dL (0.2 - 1)
[2019-01-15 19:18] LABS: BACTERIA,URINE MODERATE /HPF; EPITHELIAL CELLS,URINE FEW /LPF; HYALINE CASTS 0-1 (0-1); RBC,URINE 0-5 /HPF (0-5)
== END 2019-01-15 19:35 | disposition home or self-care (01) ==
LOC: ER 16:12
DX: K59.00 Constipation, unspecified (principal); I10 Essential (primary) hypertension; E11.9 Type 2 diabetes mellitus without complications; E03.9 Hypothyroidism, unspecified; E78.5 Hyperlipidemia, unspecified; M19.90 Unspecified osteoarthritis, unspecified site; Z88.8 Allergy status to other drugs, medicaments and biological substances; Z82.49 Family history of ischemic heart disease and other diseases of the circulatory system; Z79.4 Long term (current) use of insulin
CPT/HCPCS: 74019; 81001; 99284